=== PATIENT | male | born 1990 | race Caucasian/White ===

== ENCOUNTER 2016-07-05 10:17 | Day surgery (SDC) | payer MEDICAID ==
[2016-07-05] MEDS ORDERED: HYDROmorphONE/DILAUDID 1 MG/ML SYR IVP ONE (10:33)
[2016-07-05] MEDS ORDERED: ONDANSETRON 4 MG/2 ML VIAL IVP ONE (10:33)
[2016-07-05] MEDS ORDERED: NS 1,000 ML IV ONE (10:33)
[2016-07-05 10:35] VITALS: RESP 16
--- NOTE | 2016-07-05 10:37 | UCPHY ---
H & P Time Seen by Provider: 07/05/16 10:22 Patient Type: New HPI/ROS: HPI Abdominal pain. 26-year-old male by private vehicle with his mother. He complains of abdominal pain, periumbilical and in the lower abdomen and right lower quadrant onset at 6 :30 a.m. this morning. He reports that woke him up from sleep. Has had some nausea but no vomiting. He had an episode of diarrhea earlier this morning. No bloody or melenic stool. No prior abdominal surgical history. Last meal was last night at about 6:30 p.m.. ROS: Constitutional: No fever, no chills. No weakness. Eyes: No discharge. No changes in vision. ENT: No sore throat. No nasal congestion or rhinorrhea. Respiratory: No cough. No shortness of breath. Cardiac: No chest pain, no palpitations. Gastrointestinal: As above. Genitourinary: No hematuria. No dysuria or increased frequency with urination. No testicular pain. Musculoskeletal: No back pain. No neck pain. No myalgias or arthralgias. Skin: No rashes. Neurological: No headache. No focal weakness or altered sensation. Past medical history: Bipolar. He takes medication for this. Social history: Here with his mother. Smoker. No alcohol. Physical Exam: General Appearance: Alert, he appears uncomfortable. This patient is responding to questions appropriately and in full sentences. This patient appears well-hydrated and well-nourished. Eyes: Pupils equal and round no pallor or injection. No lid edema, erythema or injection. Respiratory: There are no retractions, lungs are clear to auscultation with good air movement bilaterally. Cardiovascular: Regular rate and rhythm. No murmur. Gastrointestinal: Abdomen is soft with tenderness on palpation of the periumbilical area, and right lower quadrant, he has voluntary guarding on palpation, no masses, bowel sounds normal. No focal tenderness at McBurney's point. No Douglas sign. Neurological: Motor sensory function is grossly intact. Cranial nerves are normal. Gait is normal. Skin: Warm and dry, no rashes. Musculoskeletal: Neck is supple and nontender. Extremities are symmetrical. All joints range without pain or impingement. Psychiatric: No agitation. No depression. Database: EKG: Imaging: CT of the abdomen and pelvis with IV contrast: Significant for acute appendicitis. Appendix measures 15 mm in diameter with associated inflammatory changes and there is an appendicolith. CT otherwise normal. Results were discussed with staff radiologist Dr. Rodrigo Servin. Procedures: Emergency department course: IV placed. He was placed on a field reimbursement manager. He was started on IV normal saline with 1 L to be given over the next hour. He was given 1 mg of IV hydromorphone and 4 mg of IV Zofran initially. 11:40 a.m., patient re-evaluated. Discussed CT findings and diagnosis of acute appendicitis as well as need for operative management. Patient given 1 g of IV Invanz. 11:45 a.m., spoke with Dr. Kyleigh Lange of the Surgical service. Case discussed in detail with her. Plan will be for the patient to be transferred to the [facility] emergency department where he will be checked in to preop and Dr. Lange will see him. 11:55 a.m., management plan discussed with the patient and the family. They are refusing a ambulance transport. They will take him to [facility] by private vehicle. Patient has received his antibiotics. He was discharged to the [facility] Emergency Department in stable condition with his family. Differential Diagnosis: The differential diagnosis on this patient includes but is not limited to appendicitis, volvulus, bowel obstruction, constipation. This represents a partial list of diagnoses considered. These considerations are based on history , physical exam, past history, reassessment and diagnostic testing. Smoking Status: Former smoker Constitutional: Initial Vital Signs Temperature (C) 36.4 C 07/05/16 10:32 Heart Rate 78 07/05/16 10:32 Respiratory Rate 16 07/05/16 10:32 Blood Pressure 126/73 H 07/05/16 10:32 O2 Sat (%) 100 07/05/16 10:32 O2 Delivery Mode Room Air Allergies/Adverse Reactions: No Known Allergies Allergy (Unverified 11/16/14 01:04) Home Medications: Medication Instructions Recorded MIRTAZAPINE 07/05/16 Seroquel 07/05/16 buPROPion 07/05/16 Medical Decision Making - Data Points Laboratory Results: Laboratory Results 07/05/16 10:40 07/05/16 10:40 Medications Given: Discontinued Medications Hydromorphone HCl (Dilaudid) 1 mg IVP EDNOW ONE Stop: 07/05/16 10:34 Last Admin: 07/05/16 10:46 Dose: 1 mg Sodium Chloride (Ns) 1,000 mls @ 0 mls/hr IV ONCE ONE PRN Reason: Wide Open Stop: 07/05/16 10:34 Last Admin: 07/05/16 10:46 Dose: 1,000 mls Ertapenem 1 gm/ Sodium (Chloride) 100 mls @ 200 mls/hr IV EDNOW ONE PRN Reason: Protocol Stop: 07/05/16 12:10 Last Admin: 07/05/16 11:50 Dose: 100 mls Ondansetron HCl (Zofran) 4 mg IVP EDNOW ONE Stop: 07/05/16 10:34 Last Admin: 07/05/16 10:46 Dose: 4 mg Departure - Departure Disposition: To OP Cath/Surgery Clinical Impression: Abdominal pain, Acute appendicitis - PQRS PQRS Measurement: Not applicable.
[2016-07-05 10:44] LABS: % IMMATURE GRANULYOCYTES 0.4 % (0.0-1.1); ABSOLUTE IMMATURE GRANULOCYTES 0.05 10^3/uL (0.00-0.10); ADD DIFF? NO; ADD MORPH? NO; ADD SCAN? NO; ATYPICAL LYMPHOCYTE FLAG 10 (0-99); FRAGMENT RBC FLAG 0 (0-99); HEMATOCRIT 45.9 % (40.0-51.0); HEMOGLOBIN 15.6 g/dL (13.7-17.5); LEFT SHIFT FLG 0 (0-99); LIPEMIA HEMOLYSIS FLAG 90 (0-99); MEAN CELL HEMOGLOBIN 28.4 pg (27.9-34.1); MEAN CELL VOLUME 83.6 fL (81.5-99.8); MEAN PLATELET VOLUME 10.1 fL (8.7-11.7); PLATELET CLUMPS FLAG 0 (0-99); PLATELET COUNT 248 10^3/uL (150-400); RED BLOOD CELL COUNT 5.49 10^6/uL (4.40-6.38); RED CELL DISTRIBUTION WIDTH 12.5 % (11.5-15.2)
[2016-07-05 10:48] LABS: COLOR YELLOW; LEUKOCYTE ESTERASE,URINE NEGATIVE (NEGATIVE); NITRITE,URINE NEGATIVE (NEGATIVE)
[2016-07-05 10:51] LABS: PH,URINE >= 9.0 (5.0-7.5)
[2016-07-05 11:01] LABS: MUCUS 1+ /lpf (NONE-1+); RBC,URINE NONE SEEN /hpf (0-3); WBC,URINE NONE SEEN /hpf (0-3)
[2016-07-05 11:06] LABS: ALANINE AMINOTRANSFERASE 32 IU/L (21-72); ALBUMIN 4.5 g/dL (3.5-5.0); ALKALINE PHOSPHATASE 56 IU/L (38-126); ANION GAP 16 mEq/L (8-16); ASPARTATE AMINOTRANSFERASE 20 IU/L (17-59); BILIRUBIN,TOTAL 0.6 mg/dL (0.1-1.4); BILIRUBIN-CONJUGATED 0.2 mg/dL (0.0-0.5); BILIRUBIN-UNCONJUGATED 0.4 mg/dL (0.0-1.1); CALCIUM 9.8 mg/dL (8.5-10.4); CARBON DIOXIDE 24 mEq/l (22-31); CHLORIDE 103 mEq/L (97-110); CREATININE 0.9 mg/dL (0.7-1.3); GLOMERULAR FILTRATION RATE > 60; GLUCOSE 82 mg/dL (70-100); POTASSIUM 4.4 mEq/L (3.5-5.2); SODIUM 143 mEq/L (134-144); TOTAL PROTEIN 7.5 g/dL (6.3-8.2)
[2016-07-05] MEDS ORDERED: IOPAMIDOL (ISOVUE-300) 100 ML BTL IV ONE ×2 (11:17)
[2016-07-05] MEDS ORDERED: ERTAPENEM 1 GM in NS 100 ML IV ONE (11:41)
[2016-07-05] MEDS ORDERED: ERTAPENEM 1 GM VIAL ONE (11:41)
[2016-07-05] MEDS ORDERED: NS 100 ML BAG (MINI-BAG) IV ONE (11:43)
[2016-07-05 12:15] VITALS: BP 127/79; PULSE 96; TEMP 98.4; O2SAT 99
[2016-07-05] MEDS ORDERED: LR 1,000 ML IV ONE (13:22)
[2016-07-05] MEDS ORDERED: SKIN ADHESIVE (DERMABOND) 1 EACH TP ONE (13:41)
[2016-07-05] MEDS ORDERED: BUPIVACAINE 0.5% 30 ML SDV ONE (13:41)
[2016-07-05] MEDS ORDERED: MIDAZOLAM 2 MG/2 ML VIAL ONE ×2 (13:55→14:52)
[2016-07-05] MEDS ORDERED: CEFAZOLIN 2 GM/DEXTROSE/100 ML BAG IV ONE (13:56)
[2016-07-05] MEDS ORDERED: fentaNYL 100 MCG/2 ML INJ ONE ×2 (13:56)
[2016-07-05] MEDS ORDERED: PROPOFOL 200 MG/20 ML VIAL ONE (13:56)
[2016-07-05] MEDS ORDERED: PROPOFOL/EMULSION 500 MG/50 ML BOTTLE IV ONE (13:56)
[2016-07-05] MEDS ORDERED: LIDOCAINE 2% 5 ML SDV ONE (13:57)
[2016-07-05] MEDS ORDERED: ROCURONIUM 50 MG/5 ML VIAL ONE (13:57)
[2016-07-05] MEDS ORDERED: KETOROLAC 30 MG/1 ML SDV ONE (14:40)
[2016-07-05] MEDS ORDERED: SUGAMMADEX SODIUM 200 MG/2 ML VIAL IVP ONE (14:42)
[2016-07-05] MEDS ORDERED: HYDROmorphONE/DILAUDID 1 MG/ML SYR ONE (15:00)
--- NOTE | 2016-07-05 15:19 | GHP ---
[f rep st] HISTORY AND PHYSICAL DATE OF ADMISSION: 07/05/2016 CHIEF COMPLAINT: Acute appendicitis. HISTORY OF PRESENT ILLNESS: The patient is a 26-year-old man, who woke up at 6:30 this morning with periumbilical pain that localized to the right lower quadrant. He had nausea, but no emesis. He d id have a history of diarrhea. He had a CT scan that showed acute appendicitis. PAST MEDICAL HISTORY: Bipolar disorder. PAST SURGICAL HISTORY: VATS for spontaneous pneumothorax. SOCIAL HISTORY: He uses tobacco. No alcohol use. He presents with his mother and his aunt. REVIEW OF SYSTEMS: A 10-point review of systems otherwise negative. FAMILY HISTORY: Noncontributory to appendicitis. PHYSICAL EXAMINATION: VITAL SIGNS: Reviewed. GENERAL: A pleasant, well-nourished, slightly uncom fortable man. HEENT: Normocephalic. No gross hearing deficits. Mucous membranes moist. Pupils e qual and round. No scleral icterus. LUNGS: Clear to auscultation bilaterally. No increased work of breathing. CARDIAC: Regular rate. No peripheral edema. ABDOMEN: Bowel sounds present. He is very tender with any type of movement, as well as to palpation in the right lower quadrant. No dis tention. SKIN: Multiple tattoos. Results reviewed. I personally reviewed his laboratory work and CT scan and agree with the finding of acute appendicitis. IMPRESSION AND PLAN: The patient is a 26-year-old man with acute appendicitis. Taking him to the o perating room for a laparoscopic appendectomy. The risks and benefits, including, but not limited t o, stroke, heart attack, , blood clots, infection, bleeding, damage to surrounding structures, such as the bowel and bladder were discussed. He had his questions answered to his satisfaction and signed the informed consent. /[id number]/MODL
[2016-07-05] MEDS ORDERED: HYDROCODONE/APAP 5/325 TAB ONE (15:20)
--- NOTE | 2016-07-05 15:54 | GOP ---
[f rep st] OPERATIVE REPORT DATE OF OPERATION: 07/05/2016 SURGEON: Kyleigh Lange MD ANESTHESIA: General. ANESTHESIOLOGIST: Shira Waddell MD PREOPERATIVE DIAGNOSIS: Acute appendicitis. POSTOPERATIVE DIAGNOSIS: Acute appendicitis. PROCEDURE PERFORMED: Laparoscopic appendectomy. FINDINGS: Inflamed appendix. ESTIMATED BLOOD LOSS: 5 cc. INDICATIONS: The patient is a 26-year-old with acute appendicitis. DESCRIPTION OF PROCEDURE: The patient was brought into the operating room, placed supine on the tab le, and general anesthesia was administered. His abdomen was prepped and draped in the usual steril e fashion. I infiltrated all sites with 0.5% Marcaine prior to making an incision. I made an incis ion by his umbilicus. I elevated it. I inserted the Veress needle. It passed the hang drop test. His abdomen insufflated easily to a pressure of 15 mmHg. Under direct vision, I placed a 5 mm troc ar with a camera at this site. There were no injuries from Veress needle placement. Under direct v ision, I placed a 5 mm suprapubic trocar and a 10 mm trocar in the left lower quadrant. There was s ome bleeding from his skin on the left lower quadrant, which was controlled with hemostasis. I lift ed his appendix cephalad and divided the mesoappendix with the Harmonic Scalpel. I transected the b ase with an Endo-DANUTA 45 white load. I placed the appendix in an EndoCatch bag and retrieved it via the 10 mm trocar. Hemostasis was achieved at the staple line. The trocars were removed under direc t vision. The abdomen was allowed to desufflate. The fascia at the 10 mm trocar site was closed wi th 0 Vicryl. Skin closed with 4-0 Monocryl. Dermabond applied. He was awakened in the operating r oom, extubated, transferred to PACU in stable condition. /[id number]/MODL
== END 2016-07-05 16:00 | disposition home or self-care (01) ==
LOC: CED 10:17 → CEDHOLD 11:54 → UNDOADMIN 11:54 → FSGY 11:54
PROVIDERS: ATTEND Surgery
PROC: 0DTJ4ZZ Resection of Appendix, Percutaneous Endoscopic Approach (ICD-10-PCS; principal; 2016-07-05 13:45)
DX: K35.80 Unspecified acute appendicitis (principal); F31.9 Bipolar disorder, unspecified; F17.200 Nicotine dependence, unspecified, uncomplicated
CPT/HCPCS: 74177-PO; 80048-PO; 80076-PO; 81003-PO; 81015-PO; 83690-PO; 85025-PO; 96361-PO; 96365-PO; 96375-PO; G0463-PO; J0690; J1170; J1335; J1885; J2250; J2405; J2704; J3010; Q9967

== ENCOUNTER 2016-07-09 12:17 | Emergency (ER) | payer MEDICAID ==
[2016-07-09 12:26] VITALS: BP 127/61; PULSE 97; RESP 16; TEMP 99; O2SAT 97
--- NOTE | 2016-07-09 14:19 | UCPHY ---
H & P Patient Type: Established Chief Complaint Nursing Narrative: POST APPENDECTOMY PAIN, APPENDECTOMY 07/05 Source: Patient Exam Limitations: No limitations - Personal History Tetanus Vaccine Date: WITHIN 10 Y - Medical/Surgical History Hx Asthma: No Hx Chronic Respiratory Disease: No Hx Diabetes: No Hx Cardiac Disease: No Hx Renal Disease: No Hx Cirrhosis: No Hx Alcoholism: No Hx HIV/AIDS: No Hx Splenectomy or Spleen Trauma: No Other PMH: bipolar, pneumothorax - Family History Significant Family History: No pertinent family hx - Social History Smoking Status: Current every day smoker Alcohol Use: None HPI/ROS: CHIEF COMPLAINT: Abdominal pain HISTORY OF PRESENT ILLNESS: This patient is a 26 year old man, status-post laparoscopic appendectomy 07/05/[address] Lange, presenting with acute worsening abdominal pain this morning. Prior to this morning, he had normal post -operative pain, but today had moderate-severe generalized abdominal pain. The pain is the worst in his mid abdomen bilaterally. He called the surgical service transcription coordinator and per their advice took ibuprofen and [place], with no alleviation. He had a normal bowel movement this morning. He ate yogurt at 9am this morning. He denies nausea, vomiting, fever, or chills. REVIEW OF SYSTEMS: A ten point review of systems was performed and is negative with the exception of the items mentioned in the HPI. (Rosette Gaitan) - Social History Additional Social History: He is single. 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 (Rosette Gaitan) - Physical Exam Exam: General Appearance: Alert. Vital signs reviewed. Eyes: Pupils equal and round, no conjunctival injection, no discharge. Anicteric. ENT, Mouth: Mucous membranes are moist, no oropharyngeal erythema or edema. Neck: No lymphadenopathy, supple. Respiratory: Lungs are clear to auscultation; no wheezes, rales, or rhonchi. Cardiovascular: Regular rate and rhythm; no murmur, rub, or gallop. Gastrointestinal: Abdomen is soft, bilateral lower abdominal tenderness, no guarding, no masses or organomegaly, bowel sounds normal. Surgical incisions intact without surrounding erythema or drainage. Skin: Warm and dry, no rashes on exposed skin, normal color. Back: Nontender to palpation over the thoracolumbar spine. No CVAT. Extremities: No lower extremity edema, no calf tenderness or swelling. Neurological: Alert and oriented. Moving all four extremities easily and equally. Psychiatric: Normal affect. (Rosette Gaitan) Constitutional: Initial Vital Signs Temperature (C) 37.2 C 07/09/16 12:21 Heart Rate 97 07/09/16 12:21 Respiratory Rate 16 07/09/16 12:21 Blood Pressure 127/61 H 07/09/16 12:21 O2 Sat (%) 97 07/09/16 12:21 O2 Delivery Mode Room Air Allergies/Adverse Reactions: No Known Allergies Allergy (Unverified 07/09/16 19:59) Home Medications: Medication Instructions Recorded Cholecalciferol Vit D3 [Vitamin D3 1,000 units PO DAILY 07/09/16 (*)] Ibuprofen [Motrin (*)] 600 mg PO BID PRN 07/09/16 Magnesium Oxide [Magnesium Oxide 400 mg PO DAILY 07/09/16 400 mg (*)] Mirtazapine 15 mg PO HS 07/09/16 [place]-3 Fatty Acids [Fish Oil 1000 1,000 mg PO BID 07/09/16 mg (*)] QUEtiapine FUMARATE [Seroquel 100 150 mg PO HS 07/09/16 mg (*)] buPROPion XL [Wellbutrin 150mg XL] 300 mg PO DAILY 07/09/16 Amoxicillin/Clavulanate Pot 875 mg PO BID #10 tab 07/11/16 [Augmentin 875 MG TAB (*)] oxyCODONE/APAP 5/325 [Percocet 1 - 2 tab PO Q4 PRN #20 tab 07/11/16 5/325 (*)] Medical Decision Making ED Course/Re-evaluation: I took a call from Dr. Phillip regarding the CT scan findings. He sees a quite tubular structure in the right lower quadrant with some minimal fluid in the right lower quadrant. Does not feel that the fluid is out of the ordinary however cannot explain the right lower quadrant tubular structure that has radiodensity. I reviewed the operative report and there does not appear to be anything that was placed in the abdomen at the time of surgery such as a drain. I reviewed the operative report with Dr. Slaughter who also looked at the CT scan. He would like to hear from the patient tomorrow if indeed he has ongoing pain. Subsequently I have spoken to the patient's mother as the patient is in crisis with increasing abdominal pain at home but also agitation secondary to his bipolar disease exacerbation. She will go ahead and try some Vicodin home and if this does not help things will proceed to the [facility]. (Surinder Garrido) This patient is four days s/p laparoscopic appendectomy 07/05/[address] Lange. He presents today with moderate-severe generalized abdominal pain, onset this morning. This pain is worse than his post-operative pain the last several days. He received no alleviation from ibuprofen and [place] at home. I have paged the surgeon transcription coordinator. CBC is normal. At 3:45 p.m. the patient reported worsening pain. When I re-examined him he continues with bilateral lower quadrant pain, no guarding. However, he is now tearful and clearly uncomfortable. He has been given Toradol and a dose of IV fentanyl. Although I think it is early for abscess formation I am proceeding with CT scan because of the apparent severity of his pain. Both he and his mother understand that it is unlikely that the CT scan which show an abscess or explain the pain. Patient's care signed out to Dr. Garrido, who will receive the CT report. (Rosette Gaitan) Differential Diagnosis: I considered a ddx that includes but is not limited to constipation, intra- abdominal abscess, perforated viscous, post-operative pain, and urinary tract infection. (Rosette Gaitan) - Data Points Laboratory Results: Laboratory Results 07/09/16 15:11 Medications Given: Discontinued Medications Fentanyl (Sublimaze) 75 mcg IVP EDNOW ONE Stop: 07/09/16 15:53 Last Admin: 07/09/16 16:01 Dose: 75 mcg Fentanyl (Sublimaze) 75 mcg IVP EDNOW ONE Stop: 07/09/16 17:12 Last Admin: 07/09/16 17:12 Dose: 75 mcg Ketorolac Tromethamine (Toradol) 15 mg IVP EDNOW ONE Stop: 07/09/16 15:53 Last Admin: 07/09/16 16:01 Dose: 15 mg Departure - Departure Disposition: Home, Routine, Self-Care Clinical Impression: Abdominal pain Qualifiers: Abdominal location: right lower quadrant Qualified Code(s): R10.31 - Right lower quadrant pain Condition: Good Instructions: Abdominal Pain (ED) Additional Instructions: Let Dr. Lange know if you have continued abdominal pain, fever, vomiting, any new or concerning symptoms. Take ibuprofen 400 mg every 6-8 hours for pain. Use Vicodin if needed for pain. Referrals: Idalia Rodriguez MD [Primary Care Provider] - As per Instructions - PQRS PQRS Measurement: Does not apply. (Rosette Gaitan) Report Scribed for: Rosette Gaitan Report Scribed by: Kyleigh Packer Date of Report: 07/09/16 Time of Report: 14:26 Physician Review and Approval Statement: 07/09/16 16:04 Portions of this note were transcribed by the biomedical repair technician. I, Dr. Rosette Gaitan, personally performed the history, physical exam, and medical decision- making; and confirmed the accuracy of the information in the transcribed note. ( Rosette Gaitan)
[2016-07-09 15:25] LABS: % IMMATURE GRANULYOCYTES 0.4 % (0.0-1.1); ABSOLUTE IMMATURE GRANULOCYTES 0.03 10^3/uL (0.00-0.10); ADD DIFF? NO; ADD MORPH? NO; ADD SCAN? NO; ATYPICAL LYMPHOCYTE FLAG 0 (0-99); FRAGMENT RBC FLAG 0 (0-99); HEMATOCRIT 44.1 % (40.0-51.0); HEMOGLOBIN 15.1 g/dL (13.7-17.5); LEFT SHIFT FLG 0 (0-99); LIPEMIA HEMOLYSIS FLAG 90 (0-99); MEAN CELL HEMOGLOBIN 28.8 pg (27.9-34.1); MEAN CELL HEMOGLOBIN CONCENTR. 34.2 g/dL (32.4-36.7); PLATELET CLUMPS FLAG 0 (0-99); PLATELET COUNT 228 10^3/uL (150-400); RED BLOOD CELL COUNT 5.25 10^6/uL (4.40-6.38); RED CELL DISTRIBUTION WIDTH 12.5 % (11.5-15.2)
[2016-07-09] MEDS ORDERED: fentaNYL 100 MCG/2 ML INJ IVP ONE ×2 (15:52→17:11)
[2016-07-09] MEDS ORDERED: KETOROLAC 30 MG/1 ML SDV IVP ONE (15:52)
[2016-07-09] MEDS ORDERED: IOPAMIDOL (ISOVUE-300) 100 ML BTL IV ONE (16:43)
== END 2016-07-09 17:45 | disposition home or self-care (01) ==
LOC: CED 12:17
DX: R10.31 Right lower quadrant pain (principal); Z90.89 Acquired absence of other organs
CPT/HCPCS: 74177-PO; 85025-PO; 96374-PO; 96375-PO; 96376-PO; G0463-PO; J1885; J3010; Q9967

== ENCOUNTER 2016-07-09 19:55 | Inpatient (IN) | payer MEDICAID ==
--- NOTE | 2016-07-09 20:12 | EDPHY ---
H & P Smoking Status: Current every day smoker Time Seen by Provider: 07/09/16 19:58 HPI/ROS: CHIEF COMPLAINT: Abdominal pain HISTORY OF PRESENT ILLNESS: 26-year-old male postop day 4 post laparoscopic appendectomy by Dr. Kyleigh Lange with seen at [facility] earlier today for complaints of abdominal pain, head CT imaging performed, results available in [facility]. The physician in the urgent care spoke with Dr. Slaughter and patient was discharged. He left the urgent care, went to [facility] ate chicken fries and notes continued and worsened pain. No nausea or vomiting. No radiation pain. No testicular pain. No fever or chills. Last oral intake was 530 pm consisting of chicken [place] REVIEW OF SYSTEMS: A ten point review of systems was performed and is negative with the exception of the items mentioned in the HPI PAST MEDICAL & SURGICAL HISTORY: Postop day 4 appendectomy. Bipolar disorder SOCIAL HISTORY:nonsmoker PHYSICAL EXAM (Prior to examination, patient consented to physical exam, hands were washed and my usual and customary physical exam procedures followed) 1) GENERAL: Well-developed, well-nourished, alert and oriented. Appears to be in no acute distress. 2) HEAD: Normocephalic, atraumatic 3) HEENT: Pupils equal, round, reactive to light bilaterally. Sclera anicteric. 4) NECK: Full range of motion, no meningeal signs. 5) LUNGS: Clear auscultation bilaterally 6) HEART: Regular rate and rhythm. 7) ABDOMEN: No guarding, tender to palpation right lower quadrant, 8) MUSCULOSKELETAL: Moving all extremities, no focal areas of tenderness, no obvious trauma. No peripheral edema or discoloration. 9) BACK: No CVA tenderness, no midline vertebral tenderness, no fluctuance, no step-off, no obvious trauma, no visual or palpable abnormality. 10) SKIN: No rash, no petechiae. 11) normal male external genitalia bilateral cremasteric reflex present and symmetrical, no testicular swelling or mass . DIFFERENTIAL DIAGNOSIS: in no particular including but not limited to abdominal abscess, intra-abdominal foreign object, post surgical pain (Narda,Edy Cindy) Constitutional: Initial Vital Signs Temperature (C) 36.7 C 07/09/16 19:59 Heart Rate 80 07/09/16 19:59 Respiratory Rate 18 07/09/16 19:59 Blood Pressure 136/100 H 07/09/16 19:59 O2 Sat (%) 100 07/09/16 19:59 O2 Delivery Mode Room Air Allergies/Adverse Reactions: No Known Allergies Allergy (Unverified 07/09/16 19:59) Home Medications: Medication Instructions Recorded Cholecalciferol Vit D3 [Vitamin D3 1,000 units PO DAILY 07/09/16 (*)] Hydrocodone/APAP 5/325 [[place] 2 each PO Q6 PRN 07/09/16 5/325 (*)] Ibuprofen [Motrin (*)] 600 mg PO BID PRN 07/09/16 Magnesium Oxide [Magnesium Oxide 400 mg PO DAILY 07/09/16 400 mg (*)] Mirtazapine 15 mg PO HS 07/09/16 [place]-3 Fatty Acids [Fish Oil 1000 1,000 mg PO BID 07/09/16 mg (*)] QUEtiapine FUMARATE [Seroquel 100 150 mg PO HS 07/09/16 mg (*)] buPROPion XL [Wellbutrin Xl] 300 mg PO DAILY 07/09/16 MDM/Departure - MDM Medications Given: Discontinued Medications Fentanyl (Sublimaze) 100 mcg IVP EDNOW ONE Stop: 07/09/16 20:36 Last Admin: 07/09/16 20:41 Dose: 100 mcg Hydromorphone HCl (Dilaudid) 0.8 mg IVP Q3H PRN PRN Reason: Pain, Severe Unable to Take PO Stop: 07/19/16 21:39 Last Admin: 07/09/16 21:56 Dose: 0.8 mg Lorazepam (Ativan Injection) 1 mg IVP ONCE ONE Stop: 07/09/16 22:01 Last Admin: 07/09/16 21:55 Dose: 1 mg ED Course/Re-evaluation: 8:30 p.m.: Phone consultation with Dr. Carrillo Slaughter. Plan will be admission and observation. Patient has been informed that he may necessitate further exploratory surgery. He will remain NPO. Last oral intake was 530 consisting of chicken [place] (Edy Laboy) The patient wasevaluatedand managed by themidlevel provider. Idiscussed the patient's presentation and course with thephysicianassistantor nurse practitionerand agree with theevaluation. My co-signature indicates that I have reviewed this chart and I agree with the findings and plan of care as documented. I am the secondary supervisingphysician. (Harika Ramirez) - Depart Disposition: [facility] Inpatient Acute Clinical Impression: Abdominal pain Qualifiers: Abdominal location: right lower quadrant Qualified Code(s): R10.31 - Right lower quadrant pain Condition: Fair
[2016-07-09] MEDS ORDERED: fentaNYL 100 MCG/2 ML INJ IVP ONE (20:35)
[2016-07-09 20:39] LABS: % IMMATURE GRANULYOCYTES 0.4 % (0.0-1.1); ABSOLUTE IMMATURE GRANULOCYTES 0.03 10^3/uL (0.00-0.10); ADD DIFF? NO; ADD MORPH? NO; ADD SCAN? NO; ATYPICAL LYMPHOCYTE FLAG 10 (0-99); FRAGMENT RBC FLAG 0 (0-99); HEMATOCRIT 48.5 % (40.0-51.0); HEMOGLOBIN 16.7 g/dL (13.7-17.5); LEFT SHIFT FLG 0 (0-99); LIPEMIA HEMOLYSIS FLAG 90 (0-99); MEAN CELL HEMOGLOBIN 29.2 pg (27.9-34.1); MEAN CELL HEMOGLOBIN CONCENTR. 34.4 g/dL (32.4-36.7); MEAN CELL VOLUME 84.9 fL (81.5-99.8); MEAN PLATELET VOLUME 10.4 fL (8.7-11.7); PLATELET CLUMPS FLAG 0 (0-99); PLATELET COUNT 256 10^3/uL (150-400); RED BLOOD CELL COUNT 5.71 10^6/uL (4.40-6.38); RED CELL DISTRIBUTION WIDTH 12.6 % (11.5-15.2)
[2016-07-09 20:46] LABS: ALANINE AMINOTRANSFERASE 39 IU/L (21-72); ALBUMIN 4.9 g/dL (3.5-5.0); ALKALINE PHOSPHATASE 59 IU/L (38-126); ANION GAP 12 mEq/L (8-16); ASPARTATE AMINOTRANSFERASE 30 IU/L (17-59); BILIRUBIN,TOTAL 0.7 mg/dL (0.1-1.4); BILIRUBIN-CONJUGATED 0.5 mg/dL (0.0-0.5); BILIRUBIN-UNCONJUGATED 0.2 mg/dL (0.0-1.1); CALCIUM 10.3 mg/dL (8.5-10.4); CARBON DIOXIDE 28 mEq/l (22-31); CHLORIDE 100 mEq/L (97-110); GLOMERULAR FILTRATION RATE > 60; GLUCOSE 90 mg/dL (70-100); POTASSIUM 4.1 mEq/L (3.5-5.2); SODIUM 140 mEq/L (134-144); TOTAL PROTEIN 7.8 g/dL (6.3-8.2)
[2016-07-09] MEDS ORDERED: HYDROmorphONE/DILAUDID 2 MG/ML INJ IVP PRN (21:40)
[2016-07-09] MEDS: KETOROLAC 15 MG/1 ML SDV IVP SCH (21:55)
[2016-07-09] MEDS ORDERED: LORazepam 2 MG/ML INJ IVP ONE (22:00)
--- NOTE | 2016-07-09 22:07 | SOAPPROG ---
SOAP Progress Note Assessment/Plan: Assessment: 26 MALE 4 DAYS SP LAP APPE/ CO SEVERE RLQ PAIN BUT +BM AND EATING/ NO EMESIS, DIARHEA, CRAMPS OR FEVER ABD SOFT, TENDER RLQ, NO PERITONEAL SX, +BS, AFEBRILE PHX PNEUMO WITH BLEB RESECTION/ BIPOLAR/ APPE NKA MEDS SEE LIST PSYCH MEDS CT SUGGESTS FB RLQ WITHOUT SX OF INFLAMMATION Plan:OBSERVE ON ABX SINCE PT JUST ATE 3 HRS AGO 07/09/16 22:02 Objective: Vital Signs Temp Pulse Resp BP Pulse Ox 36.9 C 80 16 152/82 H 98 07/09/16 20:53 07/09/16 20:53 07/09/16 20:53 07/09/16 20:53 07/09/16 20:53 07/08/16 07/09/16 07/10/16 05:59 05:59 05:59 Intake Total 0 Balance 0 ICD10 Worksheet Patient Problems: Problems Problem Status Onset Abdominal pain Acute Acute appendicitis Acute
[2016-07-09] MEDS: ERTAPENEM 1 GM in NS 100 ML IV SCH (22:35)
[2016-07-09] MEDS: D5W 1/2 NS W/ 20 KCl/L 1,000 ML IV SCH (22:36)
[2016-07-09] MEDS: ONDANSETRON 4 MG/2 ML VIAL IVP PRN (23:45)
[2016-07-10] MEDS ORDERED: KETOROLAC 15 MG/1 ML SDV IVP SCH
[2016-07-10] MEDS: HYDROmorphONE/DILAUDID 2 MG/ML INJ IVP PRN ×5 (00:44→07:25)
[2016-07-10] MEDS: KETOROLAC 15 MG/1 ML SDV IVP SCH ×5 (04:07→23:29)
[2016-07-10 04:20] LABS: % IMMATURE GRANULYOCYTES 0.3 % (0.0-1.1); ABSOLUTE IMMATURE GRANULOCYTES 0.04 10^3/uL (0.00-0.10); ADD DIFF? NO; ADD MORPH? NO; ADD SCAN? NO; ATYPICAL LYMPHOCYTE FLAG 0 (0-99); FRAGMENT RBC FLAG 0 (0-99); HEMATOCRIT 44.4 % (40.0-51.0); HEMOGLOBIN 15.3 g/dL (13.7-17.5); LEFT SHIFT FLG 0 (0-99); LIPEMIA HEMOLYSIS FLAG 90 (0-99); MEAN CELL HEMOGLOBIN 28.9 pg (27.9-34.1); MEAN CELL HEMOGLOBIN CONCENTR. 34.5 g/dL (32.4-36.7); MEAN CELL VOLUME 83.9 fL (81.5-99.8); MEAN PLATELET VOLUME 10.1 fL (8.7-11.7); PLATELET CLUMPS FLAG 0 (0-99); PLATELET COUNT 228 10^3/uL (150-400); RED BLOOD CELL COUNT 5.29 10^6/uL (4.40-6.38); RED CELL DISTRIBUTION WIDTH 12.4 % (11.5-15.2)
[2016-07-10 04:44] LABS: ALANINE AMINOTRANSFERASE 36 IU/L (21-72); ALBUMIN 4.4 g/dL (3.5-5.0); ALKALINE PHOSPHATASE 57 IU/L (38-126); AMYLASE 42 IU/L (30-110); ASPARTATE AMINOTRANSFERASE 25 IU/L (17-59); BILIRUBIN,TOTAL 0.7 mg/dL (0.1-1.4); BILIRUBIN-CONJUGATED 0.5 mg/dL (0.0-0.5); BILIRUBIN-UNCONJUGATED 0.2 mg/dL (0.0-1.1); TOTAL PROTEIN 6.8 g/dL (6.3-8.2)
[2016-07-10] MEDS: CHOLECALCIFEROL VIT D3 1,000 UNITS TAB PO SCH (07:07)
[2016-07-10] MEDS: ONDANSETRON 4 MG/2 ML VIAL IVP PRN (07:25)
[2016-07-10] MEDS: D5W 1/2 NS W/ 20 KCl/L 1,000 ML IV SCH ×3 (07:26→22:21)
[2016-07-10] MEDS: ERTAPENEM 1 GM in NS 100 ML IV SCH (07:41)
[2016-07-10] MEDS ORDERED: HYDROmorphONE/DILAUDID 2 MG/ML INJ IVP PRN (09:24)
[2016-07-10] MEDS ORDERED: fentaNYL 100 MCG/2 ML INJ ONE ×3 (09:36→12:02)
[2016-07-10] MEDS ORDERED: BUPIVACAINE 0.5% 30 ML SDV ONE (09:42)
[2016-07-10] MEDS ORDERED: PROPOFOL 200 MG/20 ML VIAL ONE (09:52)
[2016-07-10] MEDS ORDERED: DEXAMETHASONE 4 MG/ML VIAL ONE (10:24)
--- NOTE | 2016-07-10 10:25 | SOAPPROG ---
SOAP Progress Note Assessment/Plan: Assessment: 26 MALE 4 DAYS SP LAP APPE/ CO SEVERE RLQ PAIN BUT +BM AND EATING/ NO EMESIS, DIARHEA, CRAMPS OR FEVER ABD SOFT, TENDER RLQ, NO PERITONEAL SX, +BS, AFEBRILE PHX PNEUMO WITH BLEB RESECTION/ BIPOLAR/ APPE NKA MEDS SEE LIST PSYCH MEDS CT SUGGESTS FB RLQ WITHOUT SX OF INFLAMMATION Plan:OBSERVE ON ABX SINCE PT JUST ATE 3 HRS AGO 07/09/16 22:02 07/10/16 10:23 c/o increasing pain this am/ repeat ct shows worsening inflammation around foreign body risks and options fully discussed / plan surgery Objective: Vital Signs Temp Pulse Resp BP Pulse Ox 37.1 C 90 24 H 147/83 H 98 07/10/16 07:35 07/10/16 07:35 07/10/16 07:35 07/10/16 07:35 07/10/16 07:35 Laboratory Results 07/10/16 04:00 07/09/16 07/10/16 07/11/16 05:59 05:59 05:59 Intake Total 0 Balance 0 ICD10 Worksheet Patient Problems: Problems Problem Status Onset Abdominal pain Acute Acute appendicitis Acute
[2016-07-10] MEDS ORDERED: ROCURONIUM 50 MG/5 ML VIAL ONE ×2 (10:39)
[2016-07-10] MEDS ORDERED: ONDANSETRON 4 MG/2 ML VIAL ONE (10:39)
[2016-07-10] MEDS ORDERED: ESMOLOL HCL 100 MG/10 ML VIAL IV ONE (10:39)
[2016-07-10] MEDS: buPROPion XL 150 MG TAB PO SCH (10:50)
[2016-07-10] MEDS ORDERED: SUGAMMADEX SODIUM 200 MG/2 ML VIAL IVP ONE (11:09)
--- NOTE | 2016-07-10 11:28 | GHP ---
[f rep st] PREOP HISTORY AND PHYSICAL DATE OF ADMISSION: 07/09/2016 HISTORY OF PRESENT ILLNESS: The patient is a 26-year-old male who had a laparoscopic APPENDECTOMY 4 days ago and suddenly developed a sharp right lower quadrant abdominal pain earlier today. He was seen in the urgent care for several hours. A CT scan was normal except for possible foreign body in the right lower quadrant. White count was normal. He is admitted at this time for observation. He may need laparoscopy and exploration but is unclear what this possible foreign body is, and had no other signs of inflammation or complications from his surgery. PAST MEDICAL HISTORY: Includes a pneumothorax which involved a VATS pleurodesis and bleb resection. He is bipolar. REVIEW OF SYSTEMS: Reveals no major cardiopulmonary symptoms, diabetes, asthma , or other serious major medical problems on a full complete review of systems. ALLERGIES: None. MEDICATIONS: Wellbutrin, vitamin D, Remeron, and Seroquel. SPECIAL HISTORY: He is on treatment for bipolar disorder. SOCIAL HISTORY: He is a nonsmoker. FAMILY HISTORY: Noncontributory. PHYSICAL EXAMINATION: GENERAL: An alert, cooperative 26-year-old male who is in some discomfort. HEAD AND NECK: Exam is negative without icterus or adenopathy. CHEST: Clear and symmetric. CARDIAC: Regular rhythm. ABDOMEN: Soft. He has positive bowel sounds. He is tender in the right lower quadrant with no definite peritoneal signs. No inguinal hernias. GENITALIA: Normal. EXTREMITIES: Benign with full pulses. IMPRESSION: Possible complication of laparoscopic appendectomy with an unknown foreign body in the right lower quadrant. It was unclear if this is something he swallowed or something free in the abdomen. PLAN: Observation and possible laparoscopy. Risks and options have been fully discussed with the patient and he wishes to proceed with admission. We will start him on IV antibiotics and repeat evaluation to determine the need for surgery. /[id number]/MODL MTDD
[2016-07-10] MEDS ORDERED: KETOROLAC 30 MG/1 ML SDV ONE (11:32)
--- NOTE | 2016-07-10 12:07 | POSTOPPROG ---
Post Op Note Date of Operation: 07/10/16 Surgeon: Carrillo Slaughter Anesthesiologist: RONDA Anesthesia: GET(General Endotracheal) Pre-op Diagnosis: PERITONITIS, POSSIBLE FOREIGN BODY Post-op Diagnosis: PERITONITIS, LOCALIZED Indication: ONGOING PAIN AND CT FINDINGS Procedure: LAPAROSCOPY, LAPAROTOMY WITH RESECTION CECAL SUTURE LINE, MESENTERIC NODE B Findings: MARKED INFLAMMATION OF TERMINAL ILEUM WITH ENLARGED NODES, CLOUDY FLUID BUT Inf/Abcess present in the surg proc area at time of surgery?: Yes Depth: Organ Space EBL: Minimal Complications: 0 Specimen(s): 0
[2016-07-10] MEDS ORDERED: HYDROmorphONE/DILAUDID 6 MG/30 ML PCA IV PRN (12:11)
[2016-07-10] MEDS ORDERED: NALOXONE HCL 0.4 MG/ML INJ IVP PRN (12:11)
[2016-07-10] MEDS ORDERED: HYDROmorphONE/DILAUDID 1 MG/ML SYR IVP PRN (12:38)
[2016-07-10] MEDS ORDERED: HYDROmorphONE/DILAUDID 1 MG/ML SYR IVP ONE (15:30)
[2016-07-10] MEDS: HYDROmorphONE/DILAUDID 1 MG/ML SYR IVP PRN ×3 (17:35→22:21)
[2016-07-10] MEDS: OXYCODONE/APAP 5/325 TAB PO PRN (18:48)
[2016-07-10] MEDS ORDERED: MIRTAZAPINE 15 MG TAB PO SCH (21:00)
[2016-07-10] MEDS ORDERED: QUEtiapine FUMARATE 100 MG TAB PO SCH (21:00)
[2016-07-11 02:57] VITALS: O2SAT 96
[2016-07-11] MEDS: OXYCODONE/APAP 5/325 TAB PO PRN ×3 (02:57→14:35)
[2016-07-11] MEDS: KETOROLAC 15 MG/1 ML SDV IVP SCH ×2 (06:07→12:59)
[2016-07-11] MEDS: D5W 1/2 NS W/ 20 KCl/L 1,000 ML IV SCH (06:07)
[2016-07-11] MEDS: ERTAPENEM 1 GM in NS 100 ML IV SCH (09:26)
[2016-07-11] MEDS: CHOLECALCIFEROL VIT D3 1,000 UNITS TAB PO SCH (09:27)
[2016-07-11] MEDS: buPROPion XL 150 MG TAB PO SCH (09:27)
--- NOTE | 2016-07-11 10:25 | SOAPPROG ---
SOAP Progress Note Assessment/Plan: Assessment/Plan: 26 Y M hx lap appy, admitted with RLQ pain, s/p ex-laparotomy with resection of cecal suture line. Advance diet. If does well, consider d/c to home with PO abx and outpatient f/u. S: Pain controlled. Tolerating clears. +flatus and BM. O: alert, nad ctab rrr abd soft, appropriately ttp, inc cdi, +BS ext no edema 07/11/16 10:22 Objective: Vital Signs Temp Pulse Resp BP Pulse Ox 36.7 C 76 16 122/77 H 96 07/11/16 07:17 07/11/16 07:17 07/11/16 07:17 07/11/16 07:17 07/11/16 07:17 07/10/16 07/11/16 07/12/16 05:59 05:59 05:59 Intake Total 1600 Output Total 5 Balance 1595 ICD10 Worksheet Patient Problems: Problems Problem Status Onset Abdominal pain Acute Acute appendicitis Acute
[2016-07-11 11:56] VITALS: BP 133/67; PULSE 77; RESP 18; TEMP 98.6
--- NOTE | 2016-08-05 12:59 | GDS ---
[f rep st] DISCHARGE SUMMARY DISCHARGE DIAGNOSES: 1. Localized peritonitis. 2. Postoperative day 5 from laparoscopic appendectomy. PROCEDURES: Laparoscopy with laparotomy and resection of cecal suture line and mesenteric lymph nod e biopsy. INTRAOPERATIVE FINDINGS: Patient was found to have marked inflammation of the terminal ilium with e nlarged nodes and cloudy peritoneal fluid. SPECIAL TESTS: CT scan of the abdomen and pelvis showed possible right lower quadrant foreign body, query relation to a puncture of the wall of the distal small bowel. Please see report for details. HOSPITAL COURSE: The patient is a 26-year-old male who had an appendectomy via laparoscope 4 days p rior to presenting to the ER with complaints of sudden severe right lower quadrant abdominal pain. CT scan showed a possible foreign body in the right lower quadrant. As he had just eaten, he was ob served on antibiotics but eventually he was brought to the operating room for exploratory laparoscop y. He ended up with a laparotomy and resection of a cecal suture line. The procedure was uncomplic ated and he tolerated it well. The patient's postoperative course was uneventful. His diet was advanced and his pain was controlle d. Ultimately, he was ready for discharge. DISCHARGE INSTRUCTIONS: Patient was discharged to home in stable condition with plans for outpatien t followup. Please see medicine reconciliation for accurate discharge medications. Limitations kishor cordon discussed as well as signs and symptoms of ongoing/recurrent infection. /[id number]/MODL
--- NOTE | 2016-08-09 06:00 | GOP ---
[f rep st] OPERATIVE REPORT DATE OF OPERATION: 07/10/2016 SURGEON: Carrillo Slaughter MD ANESTHESIOLOGIST: Dr. Yung. PREOPERATIVE DIAGNOSIS: Peritonitis and possible foreign body seen on CT scan. POSTOPERATIVE DIAGNOSIS: 1. Localized peritonitis. 2. Possible small bowel obstruction. PROCEDURE PERFORMED: 1. Laparoscopy, laparotomy with resection of cecal suture line and. 2. Mesenteric nodes. 3. Lysis of adhesions for small bowel obstruction. FINDINGS: Patient was found to have marked inflammation of the terminal ilium with enlarged lymph n odes and cloudy fluid but no evidence of leakage from the suture lines and no source for the cloudy fluid other than the original surgery. INDICATIONS: The patient had ongoing right lower quadrant pain and CT findings of a possible foreig n body status post appendectomy. DESCRIPTION OF PROCEDURE: Patient was taken to the operating room where he received satisfactory ge neral endotracheal anesthesia by Dr. Yung, placed in supine position, prepped and draped in usual s terile fashion. A short incision was made in the left lower quadrant. A Veress needle inserted. P neumoperitoneum was established. Trocar was introduced. Laparoscope introduced. Good visualizatio n was obtained but it was quite clear that there was marked inflammation and purulent material throu ghout the abdominal cavity. Procedure was converted to a midline laparotomy. Dissection extended d own through the linea alba and careful exploration of the abdomen was then done with irrigation and removal of all purulent debris. Wound specimen was sent for culture. The small bowel was freed up from the right lower quadrant and appeared to improve in texture and color after being freed up and may have represented a partial small bowel obstruction. The cecum was exposed. The suture line cammie eared to be intact, although this is where the bowel had been adherent too. There was no evidence o f any leakage there even though we tried to express fluid from the suture line. It was elected to r e-excise the suture line and this was done with a DANUTA stapler. The specimen was sent to Pathology. Wound again was copiously irrigated. A 15 round ALMA ROSA drain was brought out through one of the trocar sites. The abdomen was closed in layers using a running #1 PDS suture for the linea alba and skin was closed with skin minerva over a 15 mm suction ALMA ROSA drain. Hemostasis was assured. Addition of th e postop diagnosis was possible small bowel obstruction. It should be noted in addition while in th e abdomen, mesenteric lymph nodes were quite enlarged and 2 separate nodes were dissected free and r emoved. Hemostasis was obtained with electrocautery and these were sent to Pathology and culture. There were no complications. He tolerated the procedure well, taken to recovery room in good condit ion. /[id number]/MODL
== END 2016-07-11 15:11 | disposition home or self-care (01) | DRG 331 ==
LOC: EDUNIT# → F1N 21:16 → OBSVTOIN 07-10 10:25 → F3E 07-10 12:40
PROVIDERS: ADMIT Surgery; ATTEND Surgery
DX: K35.3 Acute appendicitis with localized peritonitis (principal); Z53.31 Laparoscopic surgical procedure converted to open procedure; Z72.0 Tobacco use
CPT/HCPCS: 74177-PO; 85025-PO; 96374; 96374-PO; 96375-PO; 96376-PO; G0378; G0463-PO; J1100; J1170; J1335; J1885; J2060; J2405; J2704; J3010; Q9967

== ENCOUNTER 2017-05-04 16:56 | Emergency (ER) | payer MEDICAID ==
--- NOTE | 2017-05-04 16:59 | EDPHY ---
H & P HPI/ROS: HPI CHIEF COMPLAINT: Vomiting HISTORY OF PRESENT ILLNESS: Patient otherwise healthy 27-year-old male he does have a remote history of appendectomy as well as intra-abdominal peritonitis SBO , midline laparoscopic incision, he presents emergency room with nausea vomiting x1 week. Patient report each day for the past week he has had nausea vomiting. Some loose watery stools. He denies any hematemesis. States that his abdomen diffusely is crampy in nature. States he has had chills but no recorded fever. Denies black tarry stools. Denies chest pain shortness of breath. Has ongoing nausea vomiting for the past week. Past Medical History: No significant medical history, recurrent pneumothorax Past Surgical History: Appendectomy status post lap appy, complications subsequently SBO and intra-abdominal peritonitis, midline laparotomy , pneumothorax status post pleurodesis. Social History: Denies daily use of drugs alcohol tobacco. Lives in [place]. 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 Family History: Noncontributory ROS REVIEW OF SYSTEMS: A comprehensive 10 point review of systems is otherwise negative aside from elements mentioned in the history of present illness. Exam Constitutional appears well nontoxic in no acute distress triage nursing summary reviewed, vital signs reviewed, awake/alert. Eyes normal conjunctivae and sclera, EOMI, PERRLA. HENT normal inspection, atraumatic, moist mucus membranes, no epistaxis, neck supple/ no meningismus, no raccoon eyes. Respiratory clear to auscultation bilaterally, normal breath sounds, no respiratory distress, no wheezing. Cardiovascular rate normal, regular rhythm, no murmur, no edema, distal pulses normal. Gastrointestinal soft, very mild tender palpation, diffusely, no rebound, no guarding, normal bowel sounds, no distension, no pulsatile mass. Genitourinary no CVA tenderness. Musculoskeletal no midline vertebral tenderness, full range of motion, no calf swelling, no tenderness of extremities, no meningismus, good pulses, neurovascularly intact. Skin pink, warm, & dry, no rash, skin atraumatic. Neurologic awake, alert and oriented x 3, AAOx3, moves all 4 extremities equally, motor intact, sensory intact, CN II-XII intact, normal cerebellar, normal vision, normal speech. Psychiatric normal mood/affect. Heme/Lymph/Immune no lymphadenopathy. Differential diagnosis includes but is not limited to and in no particular order : Bowel obstruction, appendicitis, gallbladder disease, diverticulitis, colitis , enteritis, perforated viscus, gastritis, GERD, esophagitis, urinary tract infection, pyelonephritis, kidney stones Medical Decision Making: Plan for this patient IV establishment IV fluid bolus 1 L normal saline, 4 mg IV Zofran for nausea, IV Pepcid for GI upset, KUB to rule out abnormal bowel gas pattern given vomiting and surgical history, basic blood work, UA, drug screen re-evaluate. Re-evaluation: 1927: Re-examination at this time abdomen is soft nontender. He is not vomiting. No fever. I did reexamine he is feeling better after IV fluids nausea medicine and antacid medication. It is possible he has peptic ulcer disease. Also possibly is H pylori. Given his clinical presentation I do recommend he follows up with Gastroenterology. He understands return emergency room if develops worsening abdominal pain fever vomiting. Source: Patient - Personal History Tetanus Vaccine Date: WITHIN 10 Y - Medical/Surgical History Hx Asthma: No Hx Chronic Respiratory Disease: No Hx Diabetes: No Hx Cardiac Disease: No Hx Renal Disease: No Hx Cirrhosis: No Hx Alcoholism: No Hx HIV/AIDS: No Hx Splenectomy or Spleen Trauma: No Other PMH: bipolar, pneumothorax, appy - Social History Smoking Status: Current every day smoker Constitutional: Initial Vital Signs Temperature (C) 37.0 C 05/04/17 17:09 Heart Rate 93 05/04/17 17:09 Respiratory Rate 16 05/04/17 17:09 Blood Pressure 152/91 H 05/04/17 17:09 O2 Sat (%) 99 05/04/17 17:09 O2 Delivery Mode Room Air Allergies/Adverse Reactions: No Known Allergies Allergy (Verified 05/04/17 17:06) Home Medications: Medication Instructions Recorded Cholecalciferol Vit D3 [Vitamin D3 1,000 units PO DAILY 07/09/16 (*)] buPROPion XL [Wellbutrin 150mg XL] 300 mg PO DAILY 07/09/16 Ondansetron HCl [Zofran] 4 mg PO Q4-6PRN PRN #10 tablet 05/04/17 Medical Decision Making - Diagnostics Imaging Results: Imaging Impressions Abdomen X-Ray 05/04/17 17:14 Impression: 1. Negative supine abdominal radiographs. - Data Points Laboratory Results: Laboratory Results 05/04/17 17:25 05/04/17 17:25 18 05/04/17 17:25 17:25 WBC 9.49 10^3/uL 10^3/uL (3.80-9.50) RBC 5.24 10^6/uL 10^6/uL (4.40-6.38) Hgb 15.1 g/dL g/dL (13.7-17.5) Hct 43.5 % % (40.0-51.0) MCV 83.0 fL fL (81.5-99.8) MCH 28.8 pg pg (27.9-34.1) MCHC 34.7 g/dL g/dL (32.4-36.7) RDW 12.9 % % (11.5-15.2) Plt Count 233 10^3/uL 10^3/uL (150-400) MPV 9.4 fL fL (8.7-11.7) Neut % (Auto) 79.2 % H % (39.3-74.2) Lymph % (Auto) 16.3 % % (15.0-45.0) [place] % (Auto) 3.8 % L % (4.5-13.0) Eos % (Auto) 0.3 % L % (0.6-7.6) Baso % (Auto) 0.3 % % (0.3-1.7) Nucleat RBC Rel Count 0.0 % % (0.0-0.2) Absolute Neuts (auto) 7.51 10^3/uL H 10^3/uL (1.70-6.50) Absolute Lymphs (auto) 1.55 10^3/uL 10^3/uL (1.00-3.00) Absolute Monos (auto) 0.36 10^3/uL 10^3/uL (0.30-0.80) Absolute Eos (auto) 0.03 10^3/uL 10^3/uL (0.03-0.40) Absolute Basos (auto) 0.03 10^3/uL 10^3/uL (0.02-0.10) Absolute Nucleated RBC 0.00 10^3/uL 10^3/uL (0-0.01) Immature Gran % 0.1 % % (0.0-1.1) Immature Gran # 0.01 10^3/uL 10^3/uL (0.00-0.10) Sodium 144 mEq/L mEq/L (135-145) Potassium 3.8 mEq/L mEq/L (3.5-5.2) Chloride 101 mEq/L mEq/L (97-110) Carbon Dioxide 28 mEq/l mEq/l (22-31) Anion Gap 15 mEq/L mEq/L (8-16) BUN 10 mg/dL mg/dL (7-23) Creatinine 1.0 mg/dL mg/dL (0.7-1.3) Estimated GFR > 60 Glucose 61 mg/dL L mg/dL (70-100) Calcium 9.9 mg/dL mg/dL (8.5-10.4) Total Bilirubin 0.6 mg/dL mg/dL (0.1-1.4) Conjugated Bilirubin 0.2 mg/dL mg/dL (0.0-0.5) Unconjugated Bilirubin 0.4 mg/dL mg/dL (0.0-1.1) AST 25 IU/L IU/L (17-59) ALT 35 IU/L IU/L (21-72) Alkaline Phosphatase 62 IU/L IU/L (38-126) Total Protein 7.2 g/dL g/dL (6.3-8.2) Albumin 4.6 g/dL g/dL (3.5-5.0) Lipase 191 IU/L IU/L (23-300) Medications Given: Discontinued Medications Famotidine (Pepcid) 20 mg IVP EDNOW ONE Stop: 05/04/17 17:18 Last Admin: 05/04/17 17:37 Dose: 20 mg Sodium Chloride (Ns) 1,000 mls @ 0 mls/hr IV EDNOW ONE; Wide Open PRN Reason: Protocol Stop: 05/04/17 17:15 Last Admin: 05/04/17 17:26 Dose: 1,000 mls Sodium Chloride (Ns) 1,000 mls @ 0 mls/hr IV EDNOW ONE; Wide Open PRN Reason: Protocol Stop: 05/04/17 17:15 Last Admin: 05/04/17 18:12 Dose: 1,000 mls Ondansetron HCl (Zofran) 4 mg IVP EDNOW ONE Stop: 05/04/17 17:15 Last Admin: 05/04/17 17:26 Dose: 4 mg Promethazine HCl (Phenergan) 6.25 mg IVP ONCE ONE Stop: 05/04/17 18:22 Last Admin: 05/04/17 18:31 Dose: 6.25 mg Departure - Departure Disposition: Home, Routine, Self-Care Clinical Impression: Vomiting Qualifiers: Vomiting type: unspecified Vomiting Intractability: non-intractable Nausea presence: with nausea Qualified Code(s): R11.2 - Nausea with vomiting, unspecified Condition: Good Instructions: Acute Nausea and Vomiting (ED) Additional Instructions: 1. Zantac as prescribed. 2. Zofran if your feeling nauseous. 3. Return emergency room if develops worsening abdominal pain fever vomiting. 4. No spicy fatty greasy foods. [place] diet next 48 hr. Return if worse. Referrals: Idalia Rodriguez MD [Primary Care Provider] - As per Instructions Juliane Dominguez MD [Medical Doctor] - As per Instructions Prescriptions: Ondansetron HCl [Zofran] 4 mg PO Q4-6PRN PRN #10 tablet PRN Reason: Nausea/Vomiting, Use 1st
[2017-05-04] MEDS ORDERED: NS 1,000 ML IV ONE ×2 (17:14)
[2017-05-04] MEDS ORDERED: ONDANSETRON 4 MG/2 ML VIAL IVP ONE (17:14)
[2017-05-04 17:16] VITALS: RESP 16
[2017-05-04] MEDS ORDERED: FAMOTIDINE 20 MG/2 ML SDV IVP ONE (17:17)
[2017-05-04 17:29] LABS: PLATELET COUNT 233 10^3/uL (150-400)
[2017-05-04] MEDS ORDERED: PROMETHAZINE HCL 25 MG/ML INJ IVP ONE (18:21)
[2017-05-04 18:38] VITALS: O2SAT 98
[2017-05-04 20:00] VITALS: BP 107/61; PULSE 85; TEMP 98.4
== END 2017-05-04 20:02 | disposition home or self-care (01) ==
LOC: CED 16:56
DX: R11.2 Nausea with vomiting, unspecified (principal); E86.9 Volume depletion, unspecified; F17.200 Nicotine dependence, unspecified, uncomplicated
CPT/HCPCS: 74018-PO; 80048-PO; 80076-PO; 83690-PO; 85025-PO; 96374; J2405; J2550

== ENCOUNTER 2017-05-11 10:18 | Emergency (ER) | payer MEDICAID ==
[2017-05-11 10:26] VITALS: TEMP 97.3
[2017-05-11] MEDS ORDERED: NS 1,000 ML IV ONE (10:42)
[2017-05-11] MEDS ORDERED: HALOPERIDOL LACT 5 MG/ML INJ IVP ONE (10:43)
[2017-05-11 10:54] LABS: PLATELET COUNT 229 10^3/uL (150-400)
--- NOTE | 2017-05-11 11:11 | EDPHY ---
H & P Stated Complaint: RECHECK CONTINUED VOMITING AND DIARRHEA X WEEKS Time Seen by Provider: 05/11/17 10:23 HPI/ROS: Chief Complaint: Vomiting HPI: 27-year-old male who has been having recurrent vomiting for the last several months ever since he had peritonitis after a appendectomy. Patient actually states that he actually had some vomiting prior to that but has been getting worse over the last several months. He was seen here last week and had negative labs and x-rays. He states [employer] had does not work for him. He was referred for follow-up with GI but did not get a call back from them until today when he was on the way here. Is having some mild epigastric abdominal pain. States he vomited a large amount last night and believed to tolerate sips and keep some fluids down. He has been having some weight loss as well. Other medical history includes recurrent pneumothorax status post pleurodesis and bipolar disorder. ROS: 10 point Review of Systems is negative except as noted in the HPI. PMH: Appendicitis complicated by peritonitis, recurrent pneumothorax requiring paresis, bipolar disorder Social History: Rare smoking, rare alcohol, rare marijuana Family History: non-contributory Physical Exam: Gen: Awake, Alert, No Distress HEENT: Nose: no rhinorrhea Eyes: PERRLA, EOMI Mouth: Moist mucosa Neck: Supple, no JVD Chest: nontender, lungs clear to auscultation Heart: S1, S2 normal, no murmur Abd: Soft, non-tender, no guarding Back: no CVA tenderness, no midline tenderness Ext: no edema, non-tender Skin: no rash Neuro: CN II-XII intact, Sensation grossly intact, Strength 5/5 in bilateral upper and lower extremities - Personal History Current Tetanus/Diphtheria Vaccine: Yes Tetanus Vaccine Date: WITHIN 10 Y - Medical/Surgical History Hx Asthma: No Hx Chronic Respiratory Disease: No Hx Diabetes: No Hx Cardiac Disease: No Hx Renal Disease: No Hx Cirrhosis: No Hx Alcoholism: No Hx HIV/AIDS: No Hx Splenectomy or Spleen Trauma: No Other PMH: bipolar, pneumothorax, appy - Social History Smoking Status: Light smoker Constitutional: Initial Vital Signs Temperature (C) 36.3 C 05/11/17 10:22 Heart Rate 71 05/11/17 10:22 Respiratory Rate 16 05/11/17 10:22 Blood Pressure 137/67 H 05/11/17 10:22 O2 Sat (%) 98 05/11/17 10:22 Allergies/Adverse Reactions: No Known Allergies Allergy (Verified 05/11/17 10:26) Home Medications: Medication Instructions Recorded BUPRENORPHINE HCL 05/11/17 Promethazine HCl [Phenergan 12.5mg 12.5 mg PO TID PRN #10 tablet 05/11/17 tab] Seroquel 05/11/17 Medical Decision Making ED Course/Re-evaluation: 27-year-old male who is been having nausea vomiting for over a year, worsening the last 2 months status post peritonitis. His abdomen is soft and benign. He has no reproducible tenderness. Imaging from a week ago was unremarkable. Will put in an IV in, repeat labs. He has not had any relief with ondansetron in the past. Given the recurrent nature is nausea vomiting will treat him with 2.5 mg of Haldol and reassess. Patient having increasing agitation and restlessness secondary to the Haldol. Patient has been given Benadryl 50 mg IV. Patient has continued to feel restless. 1 mg of IV Ativan. Patient appears quite sensitive to medications. In discussing with him and his mother they state that he has always been very sensitive to medications. I have asked about the Wellbutrin and Seroquel. They state that he has been taking these for about a year to year and a half. This does: Side with when he started having symptoms. I am wondering if the Wellbutrin might be contributing to his nausea and vomiting. This is a known side effect of this medication. I have recommended that he discuss this with Gastroenterology and also there mental health providers. Patient is now improved. He is tolerating p.o.. Laboratory evaluations are unremarkable. Will discharge with follow up with [facility] to review his psychiatric medications and with Gastroenterology. - Data Points Laboratory Results: Laboratory Results 05/11/17 10:50 05/11/17 10:50 05/11/17 05/11/17 10:50 10:50 WBC 5.71 10^3/uL 10^3/uL (3.80-9.50) RBC 5.16 10^6/uL 10^6/uL (4.40-6.38) Hgb 14.9 g/dL g/dL (13.7-17.5) Hct 42.8 % % (40.0-51.0) MCV 82.9 fL fL (81.5-99.8) MCH 28.9 pg pg (27.9-34.1) MCHC 34.8 g/dL g/dL (32.4-36.7) RDW 13.0 % % (11.5-15.2) Plt Count 229 10^3/uL 10^3/uL (150-400) MPV 9.5 fL fL (8.7-11.7) Neut % (Auto) 61.0 % % (39.3-74.2) Lymph % (Auto) 29.4 % % (15.0-45.0) [place] % (Auto) 7.7 % % (4.5-13.0) Eos % (Auto) 1.2 % % (0.6-7.6) Baso % (Auto) 0.5 % % (0.3-1.7) Nucleat RBC Rel Count 0.0 % % (0.0-0.2) Absolute Neuts (auto) 3.48 10^3/uL 10^3/uL (1.70-6.50) Absolute Lymphs (auto) 1.68 10^3/uL 10^3/uL (1.00-3.00) Absolute Monos (auto) 0.44 10^3/uL 10^3/uL (0.30-0.80) Absolute Eos (auto) 0.07 10^3/uL 10^3/uL (0.03-0.40) Absolute Basos (auto) 0.03 10^3/uL 10^3/uL (0.02-0.10) Absolute Nucleated RBC 0.00 10^3/uL 10^3/uL (0-0.01) Immature Gran % 0.2 % % (0.0-1.1) Immature Gran # 0.01 10^3/uL 10^3/uL (0.00-0.10) Sodium 142 mEq/L mEq/L (135-145) Potassium 4.1 mEq/L mEq/L (3.5-5.2) Chloride 101 mEq/L mEq/L (97-110) Carbon Dioxide 27 mEq/l mEq/l (22-31) Anion Gap 14 mEq/L mEq/L (8-16) BUN 12 mg/dL mg/dL (7-23) Creatinine 0.9 mg/dL mg/dL (0.7-1.3) Estimated GFR > 60 Glucose 84 mg/dL mg/dL (70-100) Calcium 9.5 mg/dL mg/dL (8.5-10.4) Medications Given: Discontinued Medications Diphenhydramine HCl (Benadryl Injection) 50 mg IVP EDNOW ONE Stop: 05/11/17 11:09 Last Admin: 05/11/17 11:08 Dose: 50 mg Haloperidol Lactate (Haldol Injection) 2.5 mg IVP EDNOW ONE Stop: 05/11/17 10:44 Last Admin: 05/11/17 10:50 Dose: 2.5 mg Sodium Chloride (Ns) 1,000 mls @ 0 mls/hr IV ONCE ONE; Wide Open PRN Reason: Protocol Stop: 05/11/17 10:43 Last Admin: 05/11/17 10:49 Dose: 1,000 mls Lorazepam (Ativan Injection) 1 mg IVP EDNOW ONE Stop: 05/11/17 11:15 Last Admin: 05/11/17 11:19 Dose: 1 mg Departure - Departure Disposition: Home, Routine, Self-Care Clinical Impression: Nausea & vomiting Condition: Good Instructions: Acute Nausea and Vomiting (ED) Additional Instructions: Follow up with your mental health team at [facility] review your medications to see if these might be contributing to her symptoms. Follow up with Gastroenterology for further evaluation of her nausea and vomiting. You may take Reglan as needed for nausea. Return to the emergency department for increasing abdominal pain, uncontrolled nausea vomiting, fevers, chills, or any other concerns. Referrals: Idalia Rodriguez MD [Primary Care Provider] - As per Instructions Prescriptions: Promethazine HCl [Phenergan 12.5mg tab] 12.5 mg PO TID PRN #10 tablet PRN Reason: Nausea/Vomiting, Use 1st
[2017-05-11] MEDS ORDERED: LORazepam 2 MG/ML INJ IVP ONE (11:14)
[2017-05-11 13:14] VITALS: BP 127/75; PULSE 69; RESP 16; O2SAT 98
== END 2017-05-11 11:57 | disposition home or self-care (01) ==
LOC: CED 10:18
PROC: 3E0337Z Introduction of Electrolytic and Water Balance Substance into Peripheral Vein, Percutaneous Approach (ICD-10-PCS; principal; 2017-05-11)
DX: R11.2 Nausea with vomiting, unspecified (principal); E86.9 Volume depletion, unspecified; F17.200 Nicotine dependence, unspecified, uncomplicated
CPT/HCPCS: 80048-PO; 85025-PO; 96374; J1200; J1630; J2060

== ENCOUNTER 2017-08-09 07:37 | Day surgery (SDC) | payer MEDICAID ==
[2017-08-09] MEDS ORDERED: LIDOCAINE 1% 2 ML INJ ID PRN (08:15)
[2017-08-09] MEDS ORDERED: LR 1,000 ML IV ONE (08:15)
[2017-08-09] MEDS ORDERED: MIDAZOLAM 2 MG/2 ML VIAL IVP ONE (08:37)
[2017-08-09] MEDS ORDERED: LR 500 ML IV PRN (08:39)
[2017-08-09] MEDS ORDERED: NALOXONE HCL 0.4 MG/ML INJ IVP PRN (08:39)
[2017-08-09] MEDS ORDERED: PROMETHAZINE HCL 25 MG/ML INJ IVP PRN (08:39)
[2017-08-09] MEDS ORDERED: ONDANSETRON 4 MG/2 ML VIAL IVP PRN (08:39)
[2017-08-09] MEDS ORDERED: MEPERIDINE 25 MG/ML SYR IVP PRN (08:39)
[2017-08-09] MEDS ORDERED: fentaNYL 100 MCG/2 ML INJ IVP PRN (08:39)
--- NOTE | 2017-08-09 08:39 | PDANEPAE ---
ANE Past Medical History - Cardiovascular History Hx Hypertension: No Hx Arrhythmias: No Hx Chest Pain: No Hx Coronary Artery / Peripheral Vascular Disease: No Hx CHF / Valvular Disease: No Hx Palpitations: No - Pulmonary History Hx COPD: No Hx Asthma/Reactive Airway Disease: No Hx Recent Upper Respiratory Infection: No Hx Oxygen in Use at Home: No Hx Sleep Apnea: No Sleep Apnea Screening Result - Last Documented: Negative Pulmonary History Comment: hx of spontaneous pnuemo 11/22/12. bronchitis 2017 - Neurologic History Hx Cerebrovascular Accident: No Hx Seizures: No Hx Dementia: No - Endocrine History Hx Diabetes: No - Renal History Hx Renal Disorders: No - Liver History Hx Hepatic Disorders: No - Neurological & Psychiatric Hx Hx Neurological and Psychiatric Disorders: Yes Neurological / Psychiatric History Comment: bipolar. anxiety. depression - Cancer History Hx Cancer: No - Congenital Disorder History Hx Congenital Disorders: No - GI History Hx Gastrointestinal Disorders: Yes Gastrointestinal History Comment: hx of peritonitis. reflux currently. abd issues currently - Other Health History Other Health History: none - Chronic Pain History Chronic Pain: No - Surgical History Prior Surgeries: exp lap for peritonitis with Sukhjinder 07/10/16. appy with Nazario 07/05/16 ANE Review of Systems Review of Systems: - Exercise capacity METS (RN): 4 METS ANE Patient History - Allergies Allergies/Adverse Reactions: No Known Allergies Allergy (Verified 08/01/17 12:06) - Home Medications Home Medications: Seroquel 05/11/17 [Last Taken 1 Day Ago ~08/08/17] Herbals/Supplements -Info Only 08/01/17 [Last Taken Unknown] Promethazine HCl [Phenergan 12.5mg tab] 08/01/17 [Last Taken 1 Day Ago ~] traZODone 08/01/17 [Last Taken 1 Day Ago ~08/08/17] - NPO status NPO Status: no food or drink >8 hours NPO Since - Liquids (Date): 08/08/17 NPO Since - Liquids (Time): 23:00 NPO Since - Solids (Date): 08/08/17 NPO Since - Solids (Time): 22:00 - Anes Hx Anes Hx: no prior problems - Smoking Hx Smoking Status: Light smoker - Family Anes Hx Family Hx Anesthesia Complications: none ANE Labs/Vital Signs - Vital Signs Blood Pressure: 115/62 Heart Rate: 68 Respiratory Rate: 16 O2 Sat (%): 98 Height: 177.8 cm Weight: 62.596 kg ANE Physical Exam - Airway Neck exam: FROM Mallampati Score: Class 1 Mouth exam: normal dental/mouth exam - Pulmonary Pulmonary: no respiratory distress, no rales or rhonchi, clear to auscultation - Cardiovascular Cardiovascular: regular rate and rhythym, no murmur, rub, or gallop - ASA Status ASA Status: II ANE Anesthesia Plan Anesthesia Plan: GA with mask
[2017-08-09] MEDS ORDERED: PROPOFOL 200 MG/20 ML VIAL ONE (08:53)
--- NOTE | 2017-08-09 09:04 | PDGENHP ---
History & Physical Chief Complaint: Nausea with emesis History of Present Illness: 27 yo male with chronic N/V Pertinent Past, Social, Family History: Depression. Recurrent N/V Relevant Physical Exam: NAD. NC/AT. OP clear. CTA B/L. RRR without m/r/g. ABD soft. NABS. NT/ND Cardiorespiratory Assessment: ASA II. EGD with MAC
--- NOTE | 2017-08-09 09:24 | GIREPORT ---
Replaced By [facility] - Endoscopy Department Patient Name: Louis Anthony Procedure Date: 08/09/2017 8:42 AM Patient Type: Outpatient Attending MD/ ER Physician: Tanner Burks MD Procedure: Upper GI endoscopy Indications: Epigastric abdominal pain, Nausea with vomiting Providers: Tanner Burks MD Medicines: Propofol per Anesthesia Complications: No immediate complications. Description of Procedure: After obtaining informed consent, the endoscope was passed under direct vision. Throughout the procedure, the patient's blood pressure, pulse, and oxygen saturations were monitored continuously. The Endoscope was intro duced through the mouth, and advanced to the second part of duodenum. The [facility] er GI endoscopy was accomplished without difficulty. The patient tolerated th e procedure well. Findings: The esophagus was normal. The stomach was normal. The duodenal bulb, first portion of the duodenum and second portion of the duodenum were normal. Biopsies for histology were taken with a cold for ceps for evaluation of celiac disease. Estimated Blood Loss: Estimated blood loss: none. Post Op Diagnosis: - Normal esophagus. - Normal stomach. - Normal duodenal bulb, first portion of the duodenum and second portio n of the duodenum. Biopsied. Recommendation: - Await pathology results. - Continue present medications. - Return to GI office as previously scheduled. - Continue phenergan 12.5mg po TID PRN nausea - Will consider starting desipramine 10mg po QHS for cyclic vomiting syndrome. - Thank you for allowing me to be involved in the care of your patient. Attending Participation: I personally performed the entire procedure without the assistance of a fellow, resident or surg ical university administrative assistant. Tanner Burks MD Tanner Burks MD 08/09/2017 9:24:15 AM This report has been signed electronicallyDavid MD Vitaliy Number of Addenda: 0 Note Initiated On: 08/09/2017 8:42 AM [email or web address]
--- NOTE | 2017-08-09 09:28 | POSTANESTH ---
Post Anesthetic Evaluation Cardiovascular Status: Normal, Stable, Similar to Pre-Op Cond Respiratory Status: Normal, Stable, Similar to Pre-op Cond. Level of Consciousness/Mental Status: Can Participate in Eval, Moderately Sleepy Pain Control: Adequate, Prn Tx Ordered Nausea/Vomiting Control: Adequate, Prn Tx Ordered Complications Possibly Related to Anesthesia: None Noted
[2017-08-09 10:29] VITALS: BP 103/68
== END 2017-08-09 10:25 | disposition home or self-care (01) ==
LOC: FSGY 07:37
PROVIDERS: ATTEND Internal Medicine Gastroenterology
PROC: 0DB98ZX Excision of Duodenum, Via Natural or Artificial Opening Endoscopic, Diagnostic (ICD-10-PCS; principal; 2017-08-09 09:00)
DX: R11.2 Nausea with vomiting, unspecified (principal); R10.13 Epigastric pain; F31.9 Bipolar disorder, unspecified; F17.210 Nicotine dependence, cigarettes, uncomplicated
CPT/HCPCS: J2250; J2704

== ENCOUNTER 2017-09-19 13:13 | Emergency (ER) | payer MEDICAID ==
[2017-09-19 13:26] VITALS: BP 130/70
--- NOTE | 2017-09-19 13:36 | EDPHY ---
H & P Time Seen by Provider: 09/19/17 13:31 HPI/ROS: HPI Bump on right forearm. 27-year-old male by private vehicle with his girlfriend. This patient reports that 2 weeks ago he noticed a bump on his right mid ulnar aspect forearm. He reports it was reddish in somewhat tender to touch. She presents to the emergency department today stating that the bump is there still but it has gotten much smaller in his no longer red or tender. No history of trauma. No other complaints. ROS: Constitutional: No fever, no chills. No weakness. Musculoskeletal: As above. Skin: No rashes. As above. Neurological: No focal weakness or altered sensation. Past medical history: Bipolar, spontaneous pneumothorax, appendectomy. Social history: Here with his girlfriend, nonsmoker. No alcohol. Physical Exam: General Appearance: Alert, no distress. This patient is responding to questions appropriately and in full sentences. This patient appears well- hydrated and well-nourished. Eyes: Pupils equal and round no pallor or injection. No lid edema, erythema or injection. Right forearm examination: Significant for a small about 1/2 cm in diameter ganglia on cyst mid ventral ulnar forearm. No associated erythema, fluctuance or edema. It is nontender on palpation. Right forearm is neurovascularly intact. Flexor tendon function in right hand is normal. Neurological: Motor sensory function is grossly intact. Cranial nerves are normal. Gait is normal. Skin: Warm and dry, no rashes. As above. Extremities are symmetrical. All joints range without pain or impingement. Psychiatric: No agitation. No depression. Database: EKG: Imaging: Procedures: Emergency department course: Vital signs reviewed and are normal. I discussed with the patient the likely diagnosis of a ganglionic cyst. It is not painful. It is quite small. No evidence of infection. No evidence of neurologic or functional impairment of his right hand. I advised conservative management and follow up with his primary care physician in a week or 2 for re-evaluation. He is in agreement with this plan. He feels comfortable going home with his girlfriend. Return to emergency department precautions discussed. All of his questions were answered. He was discharged in good condition. Differential Diagnosis: The differential diagnosis on this patient includes but is not limited to ganglia on cyst, lipoma. Abscess, cellulitis, sebaceous cyst unlikely. This represents a partial list of diagnoses considered. These considerations are based on history, physical exam, past history, reassessment and diagnostic testing. Smoking Status: Light smoker Constitutional: Initial Vital Signs Temperature (C) 37.3 C 09/19/17 13:19 Heart Rate 95 09/19/17 13:19 Respiratory Rate 16 09/19/17 13:19 Blood Pressure 130/70 H 09/19/17 13:19 O2 Sat (%) 97 09/19/17 13:19 O2 Delivery Mode Room Air Allergies/Adverse Reactions: No Known Allergies Allergy (Verified 09/19/17 13:26) Home Medications: Medication Instructions Recorded Seroquel 05/11/17 Promethazine HCl [Phenergan 12.5mg 08/01/17 tab] Benadryl 09/19/17 Departure - Departure Disposition: Home, Routine, Self-Care Clinical Impression: Ganglion cyst Condition: Good Instructions: Ganglion Cysts (ED) Additional Instructions: Read and follow provided instructions. Follow-up with your primary care physician in 2 weeks for re-evaluation of your ganglion cyst as needed. Return to the emergency department for worsening symptoms, swelling, discoloration, pain, redness or other serious concerns. Referrals: Idalia Rodriguez MD [Primary Care Provider] - As per Instructions
== END 2017-09-19 13:50 | disposition home or self-care (01) ==
LOC: CED 13:13
DX: M67.431 Ganglion, right wrist (principal); F17.200 Nicotine dependence, unspecified, uncomplicated

== ENCOUNTER 2017-10-02 18:50 | Emergency (ER) | payer MEDICAID ==
--- NOTE | 2017-10-02 19:24 | EDPHY ---
HPI/HX/ROS/PE/MDM Narrative: CHIEF COMPLAINT: Abdominal pain and nausea HISTORY OF PRESENT ILLNESS: The patient is a 27 y/o male with a history of an appendectomy complaining of abdominal pain, nausea, vomiting, and diarrhea, acute on chronic onset 7 days ago. Around 1.5 years ago the patient developed similar symptoms and had an appendectomy associated with peritonitis. In April 2017, 6 months ago, he was seen in this emergency department for similar symptoms. At this time, the physician questioned if his recurring symptoms was due to Wellbutrin and Seroquel. Since this visit, the patient has stopped taking Wellbutrin and decreased his Seroquel dose. In July, 2 months ago, he saw Dr. Burks, ride attendant, and had a normal workup. Dr. Burks questioned if the patient 's symptoms were due to cyclic vomiting. Last week he was seen at [facility] and was advised to follow up with GI; the patient has not followed up yet. This past weekend the patient took Vicodin and Zofran without relief of his symptoms. Currently the pain is the patient's main complaint. His girlfriend believes the pain has significantly exacerbated this past week and he has not been vomiting as much as usual. In addition to his gastrointestinal symptoms, the patient is having difficulty urinating and bladder pain. Denies injury, accident, marijuana or illicit drug use. No fever, chills, chest pain, shortness of breath, palpitations, urinary complaints, headache, lightheadedness. REVIEW OF SYSTEMS: Aside from elements discussed in the HPI, a comprehensive 10-point review of systems was reviewed and is negative. PAST MEDICAL HISTORY: Appendectomy, spontaneous left pneumothorax, peritonitis, bipolar disorder SOCIAL HISTORY: Friends and family at bedside, lives in [place], single, self- employed, tobacco smoker VITAL SIGNS: Reviewed by me GENERAL: Appears to be in discomfort, well-developed, no respiratory distress. HEENT: Atraumatic. Eyes: No icterus, no injection. Mouth: moist mucous membranes. No erythema or lesions. Neck: supple with no adenopathy. LUNGS: Clear to auscultation bilaterally, no wheezes, rhonchi or rales. CARDIAC: Regular rate and rhythm, no rubs, murmurs or gallops. ABDOMEN: Moderate left mid and left lower quadrant tenderness. Soft, nondistended, bowel sounds normal. BACK: No CVA tenderness. EXTREMITIES: No trauma. No edema. Range of motion is normal throughout. NEURO: Alert and oriented, grossly nonfocal. SKIN: Warm and dry, no rash. PSYCHIATRIC: Normal mentation, no agitation. Portions of this note were transcribed by a medical front desk coordinator. I personally performed a history, physical exam, medical decision making, and confirmed accuracy of information the transcribed note. ED Course: The patient is a 27 y/o male with a history of an appendectomy and chronic abdominal pain and nausea, presenting with abdominal pain, nausea, vomiting, and diarrhea, acute on chronic onset 7 days ago. On exam he has moderate left mid and lower quadrant tenderness to palpation. Abdominopelvic CT and labs ordered; 1L IV NS, 15mg IV Toradol, and 12.5mg IV Phenergan administered. 2104: Spoke with radiologist who reports that the patient's CT nonspecific-- findings might indicate a dysmotile pattern and possible gastroenteritis. 2106: Reassessed patient and discussed laboratory and imaging findings. Patient is still in pain and appears anxious; 1mg IV Dilaudid and 1mg IV Ativan administered. 2: Reassessed patient, his pain has still not improved; 15mg IV Ketamine administered. Reexamined following additional meds. Reports pain much improved with ketamine. Will DC with ativan for anxiety and nausea, phenergan for nausea and vomiting, short course of narcotics for pain. Encouraged to follow up with GI as soon as possible. MDM: After obtaining the patients history and performing an examination, differential diagnosis considered included but was not limited to chronic abdominal pain, constipation, bowel obstruction, gastritis, pancreatitis, kidney stones, urinary tract infections and other causes. - Data Points Imaging Results: Impression: 1. Dysmotile bowel pattern suggests gastroenteritis. No bowel obstruction. 2. No free fluid, abscess, or localized intraabdominal inflammatory process. Findings discussed with Emergency Department physician, Harika Ramirez M.D., on October 02, 2017 at 2105. Dictated By: Rodrigo Servin MD Imaging: Discussed imaging studies w/ technical services representative Radiologist, I viewed and interpreted images myself Laboratory Results: Laboratory Results 10/02/17 19:33 10/02/17 19:33 Medications Given: Discontinued Medications Hydrocodone Bitart/Acetaminophen ([place] 5/325mg Prepack#6) 1 btl TAKEHOME EDNOW ONE Stop: 10/02/17 22:53 Last Admin: 10/02/17 23:06 Dose: 1 btl Dicyclomine HCl (Bentyl) 20 mg PO EDNOW ONE Stop: 10/02/17 22:54 Last Admin: 10/02/17 23:07 Dose: 20 mg Hydromorphone HCl (Dilaudid) 1 mg IVP EDNOW ONE Stop: 10/02/17 21:07 Last Admin: 10/02/17 21:20 Dose: 1 mg Hydromorphone HCl (Dilaudid) 1 mg IVP EDNOW ONE Stop: 10/02/17 22:53 Last Admin: 10/02/17 23:06 Dose: 1 mg Sodium Chloride (Ns) 1,000 mls @ 0 mls/hr IV ONCE ONE; Wide Open PRN Reason: Protocol Stop: 10/02/17 19:55 Last Admin: 10/02/17 20:06 Dose: 1,000 mls Ketamine HCl (Ketamine) 15 mg IVP EDNOW ONE Stop: 10/02/17 22:21 Last Admin: 10/02/17 22:29 Dose: 15 mg Ketorolac Tromethamine (Toradol) 15 mg IVP EDNOW ONE Stop: 10/02/17 19:57 Last Admin: 10/02/17 20:08 Dose: 15 mg Lorazepam (Ativan Injection) 1 mg IVP EDNOW ONE Stop: 10/02/17 21:07 Last Admin: 10/02/17 21:19 Dose: 1 mg Lorazepam (Ativan 1 Mg Prepack#4) 1 btl TAKEHOME EDNOW ONE Stop: 10/02/17 22:53 Last Admin: 10/02/17 23:07 Dose: 1 btl Promethazine HCl (Phenergan) 12.5 mg IVP ONCE ONE Stop: 10/02/17 19:55 Last Admin: 10/02/17 20:08 Dose: 12.5 mg General Time Seen by Provider: 10/02/17 19:23 Initial Vital Signs: Initial Vital Signs Temperature (C) 36.9 C 10/02/17 18:54 Heart Rate 112 H 10/02/17 18:54 Respiratory Rate 16 10/02/17 18:54 Blood Pressure 141/109 H 10/02/17 18:54 O2 Sat (%) 96 10/02/17 18:54 O2 Delivery Mode Room Air Allergies/Adverse Reactions: No Known Allergies Allergy (Verified 09/19/17 13:26) Home Medications: Medication Instructions Recorded QUEtiapine FUMARATE [Seroquel 100 150 - 200 mg PO HS 05/11/17 mg (*)] diphenhydrAMINE [Benadryl 25 MG 25 mg PO DAILY PRN 09/19/17 (*)] Albuterol [Proventil Inhaler HFA 1 - 2 puffs IH DAILY PRN 10/05/17 (*)] Ibuprofen [Motrin (*)] 200 mg PO DAILY PRN 10/05/17 LORazepam [Ativan (*)] 1 mg PO Q8HRS PRN 10/05/17 Promethazine HCl [Phenergan 25mg 25 mg PO Q8HRS PRN 10/05/17 (*)] Departure - Departure Disposition: Home, Routine, Self-Care Clinical Impression: Nausea Abdominal pain Qualifiers: Abdominal location: lower abdomen, unspecified Qualified Code(s): R10.30 - Lower abdominal pain, unspecified Condition: Good Instructions: Hydrocodone/Acetaminophen (By mouth), Lorazepam (By mouth), Acute Nausea and Vomiting (ED), Abdominal Pain (ED), Chronic Abdominal Pain (ED) Additional Instructions: You may take promethazine as needed for nausea. You may take Ativan if needed for persistent nausea. You may take hydrocodone if needed for more severe pain. Increase your fluid intake. Follow-up with your primary doctor within 72 hours. If you do not have a primary care physician, Dr. Caceres is on-call for us for unassigned patients. You may contact his office and let them know that this is an emergency department referral. Follow-up with your ride attendant as previously scheduled for further information and treatment of this chronic and recurring condition. Return to the Emergency Department for fever, chest pain, shortness of breath, increasing pain or other worsening of condition. Referrals: Tanner Burks MD [Medical Doctor] - As per Instructions Walter Caceres MD [[facility] [place] Primary Care Provider] - As per Instructions Report Scribed for: Harika Ramirez Report Scribed by: Antonietta Sanz Date of Report: 10/02/17 Time of Report: 19:24
[2017-10-02] MEDS ORDERED: PROMETHAZINE HCL 25 MG/ML INJ IVP ONE (19:54)
[2017-10-02] MEDS ORDERED: NS 1,000 ML IV ONE (19:54)
[2017-10-02] MEDS ORDERED: KETOROLAC 15 MG/1 ML SDV IVP ONE (19:56)
[2017-10-02 20:00] LABS: PLATELET COUNT 182 10^3/uL (150-400)
[2017-10-02] MEDS ORDERED: IOPAMIDOL (ISOVUE-300) 100 ML BTL ONE (20:11)
[2017-10-02] MEDS ORDERED: HYDROmorphONE/DILAUDID 2 MG/ML INJ IVP ONE ×2 (21:06→22:52)
[2017-10-02] MEDS ORDERED: LORazepam 2 MG/ML INJ IVP ONE (21:06)
[2017-10-02] MEDS ORDERED: HYDROmorphONE/DILAUDID 1 MG/ML INJ ONE ×2 (21:11→23:00)
[2017-10-02] MEDS ORDERED: KETAMINE 200 MG/20 ML VIAL IVP ONE (22:20)
[2017-10-02] MEDS ORDERED: LORAZEPAM 1 MG PREPACK#4 BTL TAKEHOME ONE (22:52)
[2017-10-02] MEDS ORDERED: HYDROCOD/APAP 5/325 PREPACK#6 BTL TAKEHOME ONE (22:52)
[2017-10-02] MEDS ORDERED: DICYCLOMINE 10 MG CAP PO ONE (22:53)
[2017-10-02 23:27] VITALS: BP 141/80
== END 2017-10-02 23:14 | disposition home or self-care (01) ==
DX: R11.0 Nausea (principal); R10.30 Lower abdominal pain, unspecified; E86.9 Volume depletion, unspecified; Z90.49 Acquired absence of other specified parts of digestive tract
CPT/HCPCS: 96374; J1170; J1885; J2060; J2550; Q9967

== ENCOUNTER 2017-10-05 09:45 | Observation (INO) | payer MEDICAID ==
--- NOTE | 2017-10-05 09:55 | EDPHY ---
H & P Time Seen by Provider: 10/05/17 09:53 HPI/ROS: CHIEF COMPLAINT: Abdominal pain HISTORY OF PRESENT ILLNESS: Patient had appendectomy 07/05/2016, subsequently had repeat surgery with resection of a cecal suture line. More recently patient had endoscopy in July of [address] Burks, and was in the emergency department on 10/[address] scan. Presents today with abdominal pain. He says he has had chronic abdominal pain for several months but it has been worse over the past 2 weeks. He was seen at [facility] on last Monday and then in the ED here on 10/02. Were returns today with continued symptoms after having gone to the gastroenterology office earlier this morning. Abdominal pain is diffuse, associated with no bowel movement and unable to eat or drink. Does not radiate. No urinary symptoms or male symptoms. REVIEW OF SYSTEMS: Eye: no change in vision ENT: no sore throat Cardiac: no chest pain or syncope Pulmonary: no cough or SOB Abdomen: HPI Musculoskeletal: no back pain Skin: no rash Neuro: no headache Constitutional: Subjective fever and chills : no urinary symptoms A comprehensive 10 point review of systems is otherwise negative aside from elements mentioned in the history of present illness. PAST MEDICAL HISTORY: Appendectomy as above, bipolar disorder Social history: Here with his girlfriend General Appearance: Alert and conversant, cooperative. Eyes: No scleral icterus. ENT, Mouth: Slightly dry mucous membranes. Respiratory: Normal respiratory effort, breath sounds equal, lungs are clear to auscultation. Cardiovascular: Regular rate and rhythm. Gastrointestinal: Abdomen is soft and non tender. Bowel sounds present not distended. Neurological: Alert, face symmetric, normal motor and sensory in extremities. Skin: Warm and dry, no rashes. Musculoskeletal: No peripheral edema. Psychiatric: Not agitated. Emergency Department course/MDM: Heart rate noted at 105. Afebrile. Patient had Haldol which he declines at this time. IV ketamine 20, Phenergan 12.5, a call is placed to [facility]. 1023: discussed with Shirley Gong from [facility]. On zofran and promethazine. Her recommendation is treat symptomatically, disposition per response to treatment. Does not have recommendations for other emergent imaging or diagnostics. 1140: Still has severe symptoms, repeat medicated with ketamine and Phenergan, admit hospitalist service for further evaluation for intractable symptoms. Smoking Status: Light smoker Constitutional: Initial Vital Signs Temperature (C) 37.5 C 10/05/17 09:48 Heart Rate 105 H 10/05/17 09:48 Respiratory Rate 16 10/05/17 09:48 Blood Pressure 135/98 H 10/05/17 09:48 O2 Sat (%) 99 10/05/17 09:48 O2 Delivery Mode Room Air Allergies/Adverse Reactions: No Known Allergies Allergy (Verified 09/19/17 13:26) Home Medications: Medication Instructions Recorded Seroquel 05/11/17 Promethazine HCl [Phenergan 12.5mg 08/01/17 tab] Benadryl 09/19/17 Medical Decision Making Differential Diagnosis: Differential considered including but not limited to bowel obstruction, intra- abdominal abscess, gastroenteritis, cyclic vomiting syndrome, metabolic abnormality. Consult/Admit Bed Type: [place] [id number] - Data Points Laboratory Results: Laboratory Results 10/05/17 10:15 10/05/17 10:15 10/05/17 10/05/17 10:15 10:15 WBC 4.14 10^3/uL 10^3/uL (3.80-9.50) RBC 5.15 10^6/uL 10^6/uL (4.40-6.38) Hgb 14.8 g/dL g/dL (13.7-17.5) Hct 42.6 % % (40.0-51.0) MCV 82.7 fL fL (81.5-99.8) MCH 28.7 pg pg (27.9-34.1) MCHC 34.7 g/dL g/dL (32.4-36.7) RDW 12.7 % % (11.5-15.2) Plt Count 128 10^3/uL L 10^3/uL (150-400) MPV 9.7 fL fL (8.7-11.7) Neut % (Auto) 69.2 % % (39.3-74.2) Lymph % (Auto) 22.7 % % (15.0-45.0) Haakon % (Auto) 7.2 % % (4.5-13.0) Eos % (Auto) 0.2 % L % (0.6-7.6) Baso % (Auto) 0.5 % % (0.3-1.7) Nucleat RBC Rel Count 0.0 % % (0.0-0.2) Absolute Neuts (auto) 2.86 10^3/uL 10^3/uL (1.70-6.50) Absolute Lymphs (auto) 0.94 10^3/uL L 10^3/uL (1.00-3.00) Absolute Monos (auto) 0.30 10^3/uL 10^3/uL (0.30-0.80) Absolute Eos (auto) 0.01 10^3/uL L 10^3/uL (0.03-0.40) Absolute Basos (auto) 0.02 10^3/uL 10^3/uL (0.02-0.10) Absolute Nucleated RBC 0.00 10^3/uL 10^3/uL (0-0.01) Immature Gran % 0.2 % % (0.0-1.1) Immature Gran # 0.01 10^3/uL 10^3/uL (0.00-0.10) RBC/WBC/PLT Morphology NORMAL (NORMAL) Atypical Lymphocytes 2+ H Platelet Estimate DECREASED L (ADEQ) Smear Review By Pending Sodium 144 mEq/L mEq/L (135-145) Potassium 4.0 mEq/L mEq/L (3.3-5.0) Chloride 104 mEq/L mEq/L (97-110) Carbon Dioxide 29 mEq/l mEq/l (22-31) Anion Gap 11 mEq/L mEq/L (8-16) BUN 9 mg/dL mg/dL (7-23) Creatinine 0.8 mg/dL mg/dL (0.7-1.3) Estimated GFR > 60 Glucose 84 mg/dL mg/dL (70-100) Calcium 9.5 mg/dL mg/dL (8.5-10.4) Total Bilirubin 0.6 mg/dL mg/dL (0.1-1.4) Conjugated Bilirubin 0.3 mg/dL mg/dL (0.0-0.5) Unconjugated Bilirubin 0.3 mg/dL mg/dL (0.0-1.1) AST 25 IU/L IU/L (17-59) ALT 29 IU/L IU/L (21-72) Alkaline Phosphatase 59 IU/L IU/L (38-126) Total Protein 7.2 g/dL g/dL (6.3-8.2) Albumin 4.4 g/dL g/dL (3.5-5.0) Lipase 36 IU/L IU/L (23-300) Medications Given: Discontinued Medications Sodium Chloride (Ns) 1,000 mls @ 0 mls/hr IV EDNOW ONE; Wide Open PRN Reason: Protocol Stop: 10/05/17 10:18 Last Admin: 10/05/17 10:29 Dose: 1,000 mls Sodium Chloride (Ns) 1,000 mls @ 0 mls/hr IV EDNOW ONE; Wide Open PRN Reason: Protocol Stop: 10/05/17 11:39 Last Admin: 10/05/17 11:45 Dose: 1,000 mls Ketamine HCl (Ketamine) 20 mg IVP EDNOW ONE Stop: 10/05/17 10:31 Last Admin: 10/05/17 10:53 Dose: 20 mg Ketamine HCl (Ketamine) 20 mg IVP EDNOW ONE Stop: 10/05/17 11:39 Last Admin: 10/05/17 11:46 Dose: 20 mg Promethazine HCl (Phenergan) 12.5 mg IVP EDNOW ONE Stop: 10/05/17 10:18 Last Admin: 10/05/17 10:29 Dose: 12.5 mg Promethazine HCl (Phenergan) 12.5 mg IVP EDNOW ONE Stop: 10/05/17 11:39 Last Admin: 10/05/17 11:46 Dose: 12.5 mg Departure - Departure Disposition: [facility] Inpatient Acute Clinical Impression: Abdominal pain Condition: Good Referrals: Iadlia Rodriguez MD [Primary Care Provider] - As per Instructions
[2017-10-05] MEDS ORDERED: NS 1,000 ML IV ONE ×2 (10:17→11:38)
[2017-10-05] MEDS ORDERED: PROMETHAZINE HCL 25 MG/ML INJ IVP ONE ×2 (10:17→11:38)
[2017-10-05] MEDS ORDERED: KETAMINE 200 MG/20 ML VIAL IVP ONE (10:18)
[2017-10-05 10:26] LABS: PLATELET COUNT 128 10^3/uL (150-400)
[2017-10-05] MEDS ORDERED: KETAMINE 500 MG/10 ML VIAL IVP ONE ×2 (10:30→11:38)
[2017-10-05] MEDS ORDERED: ONDANSETRON 4 MG/2 ML VIAL IVP ONE (13:03)
[2017-10-05] MEDS ORDERED: ONDANSETRON DISINTEGRATING 4 MG TAB PO PRN (13:20)
[2017-10-05] MEDS ORDERED: ONDANSETRON 4 MG/2 ML VIAL IVP PRN (13:20)
[2017-10-05] MEDS ORDERED: PROMETHAZINE HCL 25 MG/ML INJ IVP PRN (13:20)
[2017-10-05] MEDS ORDERED: diphenhydrAMINE 25 MG CAP PO PRN (13:21)
[2017-10-05] MEDS ORDERED: LORazepam 1 MG TAB PO PRN (13:21)
[2017-10-05] MEDS ORDERED: ALBUTEROL 60 PUFFS/8 GM MDI IH PRN (13:21)
[2017-10-05] MEDS ORDERED: IBUPROFEN 200 MG TAB PO PRN (13:21)
[2017-10-05] MEDS ORDERED: HYDROmorphONE/DILAUDID 1 MG/ML INJ IVP PRN (13:25)
[2017-10-05] MEDS ORDERED: ACETAMINOPHEN 325 MG TAB PO PRN (13:25)
[2017-10-05] MEDS ORDERED: oxyCODONE IR 5 MG TAB PO PRN (13:25)
[2017-10-05] MEDS ORDERED: NS 1,000 ML IV SCH (13:30)
[2017-10-05 13:47] VITALS: BP 135/80
--- NOTE | 2017-10-05 14:05 | GHP ---
[f rep st] HISTORY AND PHYSICAL DATE OF ADMISSION: 10/05/2017 CHIEF COMPLAINT: Abdominal pain. HISTORY OF PRESENT ILLNESS: This is a 27-year-old man who had an appendectomy in June of 2016 for a ppendicitis. He re-presented to the emergency department a few days later with severe pain. A repea t abdominal surgery showed a retained cecal suture which was removed. There was some localized perit onitis. Since then, he has had abdominal pain, which he describes as continuous. He has been evalua katie by his primary care physician for this as well as vomiting. He also underwent an EGD by Dr. Hoang kapadia this July which was reported as normal. Biopsies that were taken there were also normal. There w as some question whether he may have cyclic vomiting syndrome at that time. He has had now 3 present ations to the ED in approximately the last week as his abdominal pain has significantly worsened. Ab dominal CT scan from 4 days ago from this ER suggested possible gastroenteritis. There were no other acute findings. In the ED he has received ketamine. His pain is still not controlled and is thus b eing admitted. When I am seeing him, he has just received ketamine and is somewhat confused. His aunt is with him a nd assists with a lot of his history. He has had significant emesis over the past few days. He has also had some diarrhea. PAST MEDICAL/SURGICAL HISTORY: 1. Appendectomy as above. 2. Pneumothorax status post VATS pleurodesis. 3. Bipolar disorder which has been well controlled. MEDICATIONS: Please see medication reconciliation. ALLERGIES: No known drug allergies. SOCIAL HISTORY: He smokes tobacco. He does not drink. REVIEW OF SYSTEMS: A 10-point review of systems is conducted and is negative except per HPI. FAMILY HISTORY: Reviewed and noncontributory. PHYSICAL EXAM: VITAL SIGNS: Blood pressure is 127/68, heart rate 74, respiration rate 18, sating 97 % on 2 L. Temperature is 36.6. GENERAL: Mr. Anthony is a pleasant young man, resting comfortably in no acute distress. HEENT: Shows him to be normocephalic, atraumatic. CARDIOVASCULAR: Regular rat e and rhythm. No murmurs, rubs, or gallops. PULMONARY: Lungs clear to auscultation bilaterally. AB DOMEN: Soft. He has diminished bowel sounds. He is diffusely tender to palpation mostly so in the epigastrium. SKIN: Shows no rash. : No Mao. NEUROLOGIC: Shows him to be somewhat somnolent as he had just received ketamine. He wakes up. He answers questions somewhat strangely. LABS: Platelets are 128. Basic metabolic panel is absolutely normal. LFTs are normal. Lipase is n egative. DATA: 1. Reviewed his abdominal CT as above. 2. Reviewed his chart including his old EGD notes as well as old admissions. IMPRESSION AND PLAN: 1. Abdominal pain: He seems to be having an acute exacerbation of chronic pain. There may be an un derlying gastroenteritis. The history I am getting is difficult given his recent ketamine. He had pl anned to have an outpatient ultrasound. I will schedule this. Otherwise, will treat him symptomatic ally with intravenous fluids and control his pain. Will also provide intravenous antiemetics. I do not think a repeat CT scan would be helpful at this point as he just had one a few days ago. If pain could not be controlled, would consider involving General Surgery given that this started with appen dectomy and then repeat surgery for cecal suture removal. Notably, he does not have a peritoneal abd omen. His labs and vital signs are reassuring that he does not have anything catastrophic intra-abdo minally. 2. Bipolar disorder: This is reportedly well controlled by his aunt. He is on Seroquel for this. He is also on Ativan as an outpatient. I will continue that. /[id number]/MODL
[2017-10-05] MEDS: HYDROCODONE/APAP 5/325 TAB PO PRN ×2 (15:17→16:19)
[2017-10-05] MEDS ORDERED: NICOTINE 21 MG/24 HR PATCH TD SCH (16:30)
--- NOTE | 2017-10-05 18:22 | GDS ---
[f rep st] DISCHARGE SUMMARY ALL DIAGNOSES: 1. Abdominal pain with no clear etiology. 2. Bipolar disorder. 3. Mild thrombocytopenia. 4. Mild splenomegaly. HOSPITAL COURSE: This 27-year-old man who has had chronic abdominal pain for the last year after he had appendicitis. He did require a subsequent operation for a retained fecal suture that inflammatio n around it. He presented as his 3rd ER visit in the last week for worsening abdominal pain. He say s that he has lost about 15-20 pounds in the last year after his operation due to abdominal pain and difficulty eating. He had a very normal EGD in July. Admitted for pain control. I offered for him to see a surgeon, however, given his last experience here, he use not willing to see a surgeon here. He asked for recommendations for surgeons at other hospitals, and I have directed him to [facility]. Stewart neris requested pain medications on discharge, however, given that the his oral pain medications had not worked, I do not feel comfortable prescribing pain medications. I recommended that he follow up with his PCP for his mild splenomegaly as well as his thrombocytopenia. I do not think that either of th lashell are involved in the abdominal pain that he is experiencing. He has been having no problem tolera ting p.o. fluids and is eating a small amount of p.o. food. He is quite anxious to be just discharge d. I have offered to allow him to stay here. /[id number]/MODL
[2017-10-05] MEDS ORDERED: QUEtiapine FUMARATE 100 MG TAB PO SCH (21:00)
== END 2017-10-05 18:30 | disposition home or self-care (01) ==
LOC: F3E 13:36
PROVIDERS: ADMIT Student in an Organized Health Care Education/Training Program; ATTEND Student in an Organized Health Care Education/Training Program
DX: R10.9 Unspecified abdominal pain (principal); E86.9 Volume depletion, unspecified; D69.6 Thrombocytopenia, unspecified; F31.9 Bipolar disorder, unspecified; R16.1 Splenomegaly, not elsewhere classified; F17.210 Nicotine dependence, cigarettes, uncomplicated; G89.29 Other chronic pain; Z98.890 Other specified postprocedural states
CPT/HCPCS: 76700; G0378; 96374; J2405; J2550

== ENCOUNTER 2018-01-14 19:24 | Emergency (ER) | payer MEDICAID ==
--- NOTE | 2018-01-14 20:07 | EDPHY ---
H & P Stated Complaint: genrealized body pain for 2 days and unable to eat or sleep Time Seen by Provider: 01/14/18 20:06 HPI/ROS: HPI: This is a 27-year-old male who presents with Chief Complaint: generalized body pain for 2 days and unable to eat or sleep Location: Quality: Duration: Signs and Symptoms: no fever, no nausea, no vomiting, no diarrhea, no urinary symptoms, no chest pain, no shortness of breath, no wheezing, no cough, no sore throat, no neck stiffness, no joint pain, no swollen glands, no ear pain, no rash Timing: Severity: Context: Modifying Factors: Comment: ROS: A comprehensive 10 system review of systems is otherwise negative aside from elements mentioned in the history of present illness. MEDICAL/SURGICAL/SOCIAL HISTORY: Medical history: bipolar, spontaneous pneumothorax Surgical history: Appendectomy Social history: Heavy smoker. Family history noncontributory. CONSTITUTIONAL: awake and alert, no obvious distress HEENT: Atraumatic and normocephalic, PERRL, EOMI. Nares patent; no rhinorrhea; no nasal mucosal edema. Tympanic membranes clear. Oropharynx clear, no exudate and moist pink mucosa. Airway patent. No lymphadenopathy. No meningismus. Cardiovascular: Normal S1/S2, regular rate, regular rhythm, without murmur rub or gallop. PULMONARY/CHEST: Symmetrical and nontender. Clear to auscultation bilaterally. Good air movement. No accessory muscle usage. ABDOMEN: Soft, nondistended, nontender, no rebound, no guarding, no peritoneal signs, no masses or organomegaly. No CVAT. EXTREMITIES: 2/2 pulses, strength 5/5, no deformities, no clubbing, no cyanosis or edema. NEUROLOGICAL: no focal neuro deficits. GCS 15. SKIN: Warm and dry, no erythema. no rash. Good capillary refill. Source: Patient Exam Limitations: No limitations - Personal History Current Tetanus/Diphtheria Vaccine: Yes Current Tetanus Diphtheria and Acellular Pertussis (TDAP): Yes Tetanus Vaccine Date: WITHIN 10 Y - Medical/Surgical History Hx Asthma: No Hx Chronic Respiratory Disease: No Hx Diabetes: No Hx Cardiac Disease: No Hx Renal Disease: No Hx Cirrhosis: No Hx Alcoholism: No Hx HIV/AIDS: No Hx Splenectomy or Spleen Trauma: No Other PMH: bipolar,spontaneous pneumothorax, appy. - Social History Smoking Status: Heavy smoker Constitutional: Initial Vital Signs Temperature (C) 37.2 C 01/14/18 19:30 Heart Rate 118 H 01/14/18 19:30 Respiratory Rate 16 01/14/18 19:30 Blood Pressure 133/86 H 01/14/18 19:30 O2 Sat (%) 94 01/14/18 19:30 O2 Delivery Mode Room Air Allergies/Adverse Reactions: No Known Allergies Allergy (Verified 01/14/18 19:33) Home Medications: Medication Instructions Recorded QUEtiapine FUMARATE [Seroquel 100 150 - 200 mg PO HS 05/11/17 mg (*)] LORazepam [Ativan (*)] 1 mg PO Q8HRS PRN 10/05/17 Promethazine HCl [Phenergan 25mg 25 mg PO Q8HRS PRN 10/05/17 (*)] Departure - Departure Condition: Good Referrals: Idalia Rodriguez MD [Primary Care Provider] - As per Instructions
[2018-01-14] MEDS ORDERED: DIAZEPAM 5 MG/ML 1 ML SYR IVP ONE (20:15)
[2018-01-14] MEDS ORDERED: KETOROLAC 30 MG/1 ML SDV IVP ONE (20:15)
[2018-01-14] MEDS ORDERED: NS 1,000 ML IV ONE (20:15)
--- NOTE | 2018-01-14 20:21 | EDPHY ---
H & P Stated Complaint: genrealized body pain for 2 days and unable to eat or sleep Time Seen by Provider: 01/14/18 20:06 HPI/ROS: HPI: This is a 27-year-old male who presents with Chief Complaint: generalized body pain for 2 days and unable to eat or sleep Location: Body Quality: Pain Duration: 2 days Signs and Symptoms: + chills, no fever, no nausea, no vomiting, no diarrhea, no urinary symptoms, no chest pain, no shortness of breath, no wheezing, no cough, no sore throat, no neck stiffness, no joint pain, no swollen glands, no ear pain , no rash, + muscle aches Timing: Gradual onset now constant Severity: Moderate Context: Patient has a history of chronic abdominal pain, status post appendectomy, bipolar disorder presents with gradual onset of generalized body aches and chills over the last 2 days accompanied by inability to sleep. Reports a decreased appetite accompanied by generalized abdominal pain. Chart review shows that patient has a history of splenomegaly and thrombocytopenia with chronic opiate use. Patient denies any current pain contracts. Significant other at bedside is feeling well. Patient missed work today. Modifying Factors: None Comment: ROS: A comprehensive 10 system review of systems is otherwise negative aside from elements mentioned in the history of present illness. MEDICAL/SURGICAL/SOCIAL HISTORY: Medical history: bipolar, spontaneous pneumothorax, chronic abdominal pain Surgical history: Appendectomy Social history: Smoker. Family history noncontributory. CONSTITUTIONAL: Nontoxic-appearing young adult white male, awake and alert, no obvious distress HEENT: Atraumatic and normocephalic, PERRL, EOMI. Nares patent; no rhinorrhea; no nasal mucosal edema. Tympanic membranes clear. Oropharynx clear, no exudate and moist pink mucosa. Airway patent. No lymphadenopathy. No meningismus. Cardiovascular: Normal S1/S2, regular rate, regular rhythm, without murmur rub or gallop. PULMONARY/CHEST: Symmetrical and nontender. Clear to auscultation bilaterally. Good air movement. No accessory muscle usage. ABDOMEN: Soft, nondistended, nontender, no rebound, no guarding, no peritoneal signs, no masses or organomegaly. No CVAT. EXTREMITIES: 2/2 pulses, strength 5/5, no deformities, no clubbing, no cyanosis or edema. NEUROLOGICAL: no focal neuro deficits. GCS 15. SKIN: Warm and dry, no erythema. no rash. Good capillary refill. Source: Patient Exam Limitations: No limitations - Personal History Current Tetanus/Diphtheria Vaccine: Yes Current Tetanus Diphtheria and Acellular Pertussis (TDAP): Yes Tetanus Vaccine Date: WITHIN 10 Y - Medical/Surgical History Hx Asthma: No Hx Chronic Respiratory Disease: No Hx Diabetes: No Hx Cardiac Disease: No Hx Renal Disease: No Hx Cirrhosis: No Hx Alcoholism: No Hx HIV/AIDS: No Hx Splenectomy or Spleen Trauma: No Other PMH: bipolar,spontaneous pneumothorax, appy. - Social History Smoking Status: Heavy smoker Constitutional: Initial Vital Signs Temperature (C) 37.2 C 01/14/18 19:30 Heart Rate 118 H 01/14/18 19:30 Respiratory Rate 16 01/14/18 19:30 Blood Pressure 133/86 H 01/14/18 19:30 O2 Sat (%) 94 01/14/18 19:30 O2 Delivery Mode Room Air Allergies/Adverse Reactions: No Known Allergies Allergy (Verified 01/14/18 19:33) Home Medications: Medication Instructions Recorded QUEtiapine FUMARATE [Seroquel 100 150 - 200 mg PO HS 05/11/17 mg (*)] LORazepam [Ativan (*)] 1 mg PO Q8HRS PRN 10/05/17 Promethazine HCl [Phenergan 25mg 25 mg PO Q8HRS PRN 10/05/17 (*)] Medical Decision Making ED Course/Re-evaluation: Vital signs reviewed and show mild tachycardia. Afebrile. Laboratory studies and influenza test ordered Abdominal exam is soft and nontender. Doubt surgical process. Patient given 1 L normal saline, IV Toradol, IV Valium 2.5 mg 2108: Labs reviewed. No signs of leukocytosis/anemia/platelet dysfunction/RYAN/ elevated LFTs/electrolyte imbalance/pancreatitis. Flu negative. Reassessed patient reports moderate relief of symptoms. Vital signs at discharge improved. Tachycardia resolved. Suspect viral syndrome. No clear signs of opiate withdrawal syndrome at this time. Passed p.o. Trial prior to discharge. This patient was seen under the supervision of my secondary supervising physician. I evaluated care for this patient independently. Discussed this patient with Dr. To. Differential Diagnosis: Adult fever including but not limited to viral syndromes including influenza, urinary tract infection, pneumonia and sepsis. - Data Points Laboratory Results: Laboratory Results 01/14/18 20:20 01/14/18 20:20 01/14/18 01/14/18 01/14/18 20:25 20:20 20:20 WBC 6.98 10^3/uL 10^3/uL (3.80-9.50) RBC 5.53 10^6/uL 10^6/uL (4.40-6.38) Hgb 15.5 g/dL g/dL (13.7-17.5) Hct 43.9 % % (40.0-51.0) MCV 79.4 fL L fL (81.5-99.8) MCH 28.0 pg pg (27.9-34.1) MCHC 35.3 g/dL g/dL (32.4-36.7) RDW 13.2 % % (11.5-15.2) Plt Count 213 10^3/uL 10^3/uL (150-400) MPV 9.6 fL fL (8.7-11.7) Neut % (Auto) 59.0 % % (39.3-74.2) Lymph % (Auto) 34.2 % % (15.0-45.0) [place] % (Auto) 5.7 % % (4.5-13.0) Eos % (Auto) 0.6 % % (0.6-7.6) Baso % (Auto) 0.4 % % (0.3-1.7) Nucleat RBC Rel Count 0.0 % % (0.0-0.2) Absolute Neuts (auto) 4.11 10^3/uL 10^3/uL (1.70-6.50) Absolute Lymphs (auto) 2.39 10^3/uL 10^3/uL (1.00-3.00) Absolute Monos (auto) 0.40 10^3/uL 10^3/uL (0.30-0.80) Absolute Eos (auto) 0.04 10^3/uL 10^3/uL (0.03-0.40) Absolute Basos (auto) 0.03 10^3/uL 10^3/uL (0.02-0.10) Absolute Nucleated RBC 0.00 10^3/uL 10^3/uL (0-0.01) Immature Gran % 0.1 % % (0.0-1.1) Immature Gran # 0.01 10^3/uL 10^3/uL (0.00-0.10) Sodium 138 mEq/L mEq/L (135-145) Potassium 3.9 mEq/L mEq/L (3.3-5.0) Chloride 102 mEq/L mEq/L (97-110) Carbon Dioxide 27 mEq/l mEq/l (22-31) Anion Gap 9 mEq/L mEq/L (8-16) BUN 15 mg/dL mg/dL (7-23) Creatinine 0.8 mg/dL mg/dL (0.7-1.3) Estimated GFR > 60 Glucose 90 mg/dL mg/dL (70-100) Calcium 10.0 mg/dL mg/dL (8.5-10.4) Total Bilirubin 0.5 mg/dL mg/dL (0.1-1.4) Conjugated Bilirubin 0.1 mg/dL mg/dL (0.0-0.5) Unconjugated Bilirubin 0.4 mg/dL mg/dL (0.0-1.1) AST 23 IU/L IU/L (17-59) ALT 27 IU/L IU/L (21-72) Alkaline Phosphatase 49 IU/L IU/L (38-126) Creatine Kinase 115 IU/L IU/L (0-224) Total Protein 7.2 g/dL g/dL (6.3-8.2) Albumin 4.6 g/dL g/dL (3.5-5.0) Lipase 60 IU/L IU/L (23-300) Nasal Influenza A PCR NEGATIVE FOR FLU A (NEGATIVE) Nasal Influenza B PCR NEGATIVE FOR FLU B (NEGATIVE) Medications Given: Discontinued Medications Diazepam (Valium) 2.5 mg IVP EDNOW ONE Stop: 01/14/18 20:16 Last Admin: 01/14/18 20:21 Dose: 2.5 mg Sodium Chloride (Ns) 1,000 mls @ 0 mls/hr IV EDNOW ONE; Wide Open PRN Reason: Protocol Stop: 01/14/18 20:16 Last Admin: 01/14/18 20:22 Dose: 1,000 mls Ketorolac Tromethamine (Toradol) 30 mg IVP EDNOW ONE Stop: 01/14/18 20:16 Last Admin: 01/14/18 20:21 Dose: 30 mg Departure - Departure Disposition: Home, Routine, Self-Care Clinical Impression: Viral syndrome Condition: Good Instructions: Viral Syndrome (ED) Additional Instructions: Rest as much as possible until you are feeling better. Consume a minimum of 8-10 glasses of water or electrolyte fluid replacement drinks that include Gatorade, Powerade, Pedialyte. Take Tylenol and/or ibuprofen as needed for pain. Return to the ER immediately if you experience fevers/chills, shortness of breath, abdominal pain, inability to tolerate oral intake, or any other symptoms that concern you. Referrals: Idalia Rodriguez MD [Primary Care Provider] - As per Instructions Stand Alone Forms: Work Excuse
[2018-01-14 20:30] LABS: PLATELET COUNT 213 10^3/uL (150-400)
[2018-01-14 20:45] LABS: CREATINE KINASE 115 IU/L (0-224)
[2018-01-14 21:13] VITALS: BP 109/65
== END 2018-01-14 21:29 | disposition home or self-care (01) ==
DX: B34.9 Viral infection, unspecified (principal); F31.9 Bipolar disorder, unspecified; F17.210 Nicotine dependence, cigarettes, uncomplicated
CPT/HCPCS: 96374; J1885; J3360

== ENCOUNTER → 2018-06-19 | Outpatient (CLI) | payer MEDICAID ==
[~2018-06-19] MED LIST: GADOBUTROL 10 ML VIAL IVP ONE; GLUCAGON HCL 0.3 MG in SYRINGE 0.3 ML IVP ONE
== END ==
LOC: FIMAGING 07:44
PROVIDERS: ATTEND Physician Assistant
DX: R10.84 Generalized abdominal pain (principal); K59.00 Constipation, unspecified; R16.1 Splenomegaly, not elsewhere classified; Z98.890 Other specified postprocedural states; Z90.89 Acquired absence of other organs
CPT/HCPCS: A9585; J1610

== ENCOUNTER 2018-09-18 15:29 | Emergency (ER) | payer MEDICAID | END 2018-09-18 16:49 | disposition home or self-care (01) | LOC: CED 15:29 ==